=== PATIENT | male | born 1955 | race American Indian/Alaskan Native ===

== ENCOUNTER 2018-04-03 14:26 | Inpatient (IN) | payer SELFPAY ==
[2018-04-03 15:05] LABS: Basophils % (Auto) 0.3 % (0.0-1.8); Eosinophils # (Auto) 0.3 K/mm3 (0.0-0.4); Eosinophils % (Auto) 2.9 % (0.0-4.3); Hematocrit 32.7 % (35.5-45.6); Hemoglobin 10.8 gm/dl (11.8-15.2); Lymphocytes # (Auto) 2.1 K/mm3 (1.2-5.4); Lymphocytes % (Auto) 20.4 % (13.4-35.0); Mean Corpuscular HGB Conc 33 % (32-34); Mean Corpuscular Hemoglobin 29 pg (28-32); Mean Corpuscular Volume 87 fl (84-94); Monocytes # (Auto) 0.6 K/mm3 (0.0-0.8); Monocytes % (Auto) 5.9 % (0.0-7.3); Platelet Count 429 K/mm3 (140-440); Red Blood Count 3.75 M/mm3 (3.65-5.03)
[2018-04-03 15:07] LABS: Red Cell Distribution Width 20.2 % (13.2-15.2)
[2018-04-03 15:22] LABS: BUN/Creatinine Ratio 15; Blood Urea Nitrogen 15 mg/dL (9-20); Calcium 9.4 mg/dL (8.4-10.2); Hemolysis Index 0
--- NOTE | 2018-04-03 16:29 | Emergency Department Report ---
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 He also complained of swelling around the AICD implantation site. MD Complaint: chest pain -: Sudden, Last night Onset: during rest Pain Location: left chest Pain Radiation: none Severity: mild Severity scale (0 -10): 2 Quality: sharp Consistency: constant Improves With: nothing Worsens With: nothing re: denies: nausea, vomting Other Symptoms: denies: cough, fever, syncope Treatments Prior to Arrival: none Aspirin use within the Past 7 Days: (0) No - Related Data On Oral Contraceptives: No Previous Rx's Medication Instructions Recorded Last Taken Type Aspirin [Aspirin BABY CHEW TAB] 81 mg PO DAILY #30 tab.chew 03/31/18 Unknown Rx AtorvaSTATin [Lipitor] 80 mg PO QHS #30 tablet 03/31/18 Unknown Rx Carvedilol [Coreg] 3.125 mg PO BID #60 tablet 03/31/18 Unknown Rx Lisinopril [Zestril TAB] 2.5 mg PO QDAY #30 tablet 03/31/18 Unknown Rx Warfarin [Coumadin] 7.5 mg PO QDAY #30 tablet 03/31/18 Unknown Rx Allergies Allergy/AdvReac Type Severity Reaction Status Date / Time No Known Allergies Allergy Verified 04/03/18 15:59 Heart Score - HEART Score History: Moderately suspicious EKG: Non-specific Age: 45-65 Risk factors: 1-2 risk factors Troponin: < normal limit HEART Score: 4 - Critical Actions Critical Actions: 4-6 pts:12-16.6% risk of adverse cardiac event. 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 denies: dyspnea on exertion, orthopnea Endocrine: no symptoms reported Gastrointestinal: denies: abdominal pain, nausea, vomiting, diarrhea Genitourinary: denies: urgency, dysuria Musculoskeletal: denies: back pain, joint swelling Skin: denies: rash, lesions Neurological: denies: headache, weakness, numbness, paresthesias Psychiatric: denies: anxiety, depression Hematological/Lymphatic: denies: easy bleeding, easy bruising ED Past Medical Hx - Past Medical History Hx Hypertension: Yes Hx Heart Attack/AMI: Yes (02/2018) Hx Congestive Heart Failure: No Hx Diabetes: Yes Hx Deep Vein Thrombosis: No Hx Pulmonary Embolism: No Hx Liver Disease: No Hx Renal Disease: No Hx Arthritis: No Hx Headaches / Migraines: No Hx Seizures: No Hx Kidney Stones: No Hx Asthma: No Hx COPD: No Hx Tuberculosis: No Hx Dementia: No Hx HIV: No Additional medical history: hyperlipidemia - Surgical History Hx Coronary Stent: No Hx Open Heart Surgery: No Hx Pacemaker: No Hx Internal Defibrillator: No Hx Cholecystectomy: No Hx Appendectomy: No Hx Breast Surgery: No Additional Surgical History: Herniorrhaphy - Social History Smoking Status: Former Smoker Substance Use Type: None - Medications Home Medications: Home Medications Medication Instructions Recorded Confirmed Last Taken Type Aspirin [Aspirin BABY CHEW TAB] 81 mg PO DAILY #30 tab.chew 03/31/18 04/03/18 Unknown Rx AtorvaSTATin [Lipitor] 80 mg PO QHS #30 tablet 03/31/18 04/03/18 Unknown Rx Carvedilol [Coreg] 3.125 mg PO BID #60 tablet 03/31/18 04/03/18 Unknown Rx Lisinopril [Zestril TAB] 2.5 mg PO QDAY #30 tablet 03/31/18 04/03/18 Unknown Rx Warfarin [Coumadin] 7.5 mg PO QDAY #30 tablet 03/31/18 04/03/18 Unknown Rx ED Physical Exam - General Limitations: No Limitations General appearance: alert, in no apparent distress - Head Head exam: Present: atraumatic, normocephalic, normal inspection - Eye Eye exam: Present: normal appearance, PERRL, EOMI Pupils: Present: normal accommodation - ENT ENT exam: Present: normal exam, normal orophraynx, mucous membranes moist - Neck Neck exam: Present: normal inspection, full ROM. Absent: tenderness - Respiratory Respiratory exam: Present: normal lung sounds bilaterally. Absent: respiratory distress, wheezes, rales, rhonchi, stridor - Cardiovascular Cardiovascular Exam: Present: regular rate, normal rhythm, normal heart sounds - GI/Abdominal GI/Abdominal exam: Present: soft, normal bowel sounds. Absent: distended, tenderness, guarding, rebound, rigid - Extremities Exam Extremities exam: Present: normal inspection, full ROM, normal capillary refill. Absent: tenderness - Back Exam Back exam: Present: normal inspection, full ROM. Absent: tenderness - Neurological Exam Neurological exam: Present: alert, oriented X3, CN II-XII intact - Psychiatric Psychiatric exam: Present: normal affect, normal mood - Skin Skin exam: Present: warm, dry, intact, normal color. Absent: rash ED Course Vital Signs 04/03/18 04/03/18 14:36 20:01 Temperature 98.2 F Pulse Rate 103 H 67 Respiratory 20 16 Rate Blood Pressure 96/58 Blood Pressure 105/80 [Left] O2 Sat by Pulse 99 96 Oximetry - Reevaluation(s) Reevaluation #1: 04/04/18 02:52 Patient's AICD was interogated by the [employer] patient account representative in the ED. He reported back to me that his findings showed a normal working AICD. There is no evidence that the patient was shocked according to the patient account representative who did the interogation. - Consultations Consultation #1: 04/03/18 17:[address] London who is on-call for Dr. Perez. He recommended admitting the patient to the hospitalist and entire event and a AICD. CLARITZA score - Claritza Score Age > 65: (0) No Aspirin use within the Past 7 Days: (0) No 3 or more CAD Risk Factors: (1) Yes 2 or more Angina events in past 24 hrs: (1) Yes Known CAD with more than 50% Stenosis: (1) Yes Elevated Cardiac Markers: (0) No ST Deviation Greater than 0.5mm: (0) No CLARITZA Score: 3 ED Medical Decision Making - Lab Data Result diagrams: 04/03/18 14:46 04/03/18 14:46 Lab Results 04/03/18 04/03/18 04/03/18 Range/Units 14:46 14:46 14:46 WBC 10.5 (4.5-11.0) K/mm3 RBC 3.75 (3.65-5.03) M/mm3 Hgb 10.8 L (11.8-15.2) gm/dl Hct 32.7 L (35.5-45.6) % MCV 87 (84-94) fl MCH 29 (28-32) pg MCHC 33 (32-34) % RDW 20.2 H (13.2-15.2) % Plt Count 429 (140-440) K/mm3 Lymph % (Auto) 20.4 (13.4-35.0) % [place] % (Auto) 5.9 (0.0-7.3) % Eos % (Auto) 2.9 (0.0-4.3) % Baso % (Auto) 0.3 (0.0-1.8) % Lymph # 2.1 (1.2-5.4) K/mm3 [place] # 0.6 (0.0-0.8) K/mm3 Eos # 0.3 (0.0-0.4) K/mm3 Baso # 0.0 (0.0-0.1) K/mm3 Seg Neutrophils % 70.5 H (40.0-70.0) % Seg Neutrophils # 7.4 (1.8-7.7) K/mm3 PT (12.2-14.9) Sec. INR (0.87-1.13) APTT (24.2-36.6) Sec. Sodium 135 L (137-145) mmol/L Potassium 3.6 (3.6-5.0) mmol/L Chloride 97.5 L (98-107) mmol/L Carbon Dioxide 25 (22-30) mmol/L Anion Gap 16 mmol/L BUN 15 (9-20) mg/dL Creatinine 1.0 (0.8-1.5) mg/dL Estimated GFR > 60 ml/min BUN/Creatinine Ratio 15 % Glucose 173 H (75-100) mg/dL Calcium 9.4 (8.4-10.2) mg/dL Troponin T < 0.010 (0.00-0.029) ng/mL NT-Pro-B Natriuret Pep 740.8 (0-900) pg/mL 04/03/18 04/03/18 Range/Units 16:45 17:17 WBC (4.5-11.0) K/mm3 RBC (3.65-5.03) M/mm3 Hgb (11.8-15.2) gm/dl Hct (35.5-45.6) % MCV (84-94) fl MCH (28-32) pg MCHC (32-34) % RDW (13.2-15.2) % Plt Count (140-440) K/mm3 Lymph % (Auto) (13.4-35.0) % [place] % (Auto) (0.0-7.3) % Eos % (Auto) (0.0-4.3) % Baso % (Auto) (0.0-1.8) % Lymph # (1.2-5.4) K/mm3 [place] # (0.0-0.8) K/mm3 Eos # (0.0-0.4) K/mm3 Baso # (0.0-0.1) K/mm3 Seg Neutrophils % (40.0-70.0) % Seg Neutrophils # (1.8-7.7) K/mm3 PT 35.7 H (12.2-14.9) Sec. INR 3.28 H (0.87-1.13) APTT 74.9 H* (24.2-36.6) Sec. Sodium (137-145) mmol/L Potassium (3.6-5.0) mmol/L Chloride (98-107) mmol/L Carbon Dioxide (22-30) mmol/L Anion Gap mmol/L BUN (9-20) mg/dL Creatinine (0.8-1.5) mg/dL Estimated GFR ml/min BUN/Creatinine Ratio % Glucose (75-100) mg/dL Calcium (8.4-10.2) mg/dL Troponin T < 0.010 (0.00-0.029) ng/mL NT-Pro-B Natriuret Pep (0-900) pg/mL - EKG Data -: EKG Interpreted by Vt EKG shows normal: sinus rhythm Rate: normal (94) - EKG Data When compared to previous EKG there are: changes noted Interpretation: nonspecific ST-T wave gabi 04/03/18 18:09 PVC's, LAE, No STEMI. - Radiology Data Radiology results: report reviewed, image reviewed Chest x-ray was within normal limits. CT scan of the status does not show pulmonary embolism. Please refer to the radiology report for further details. - Medical Decision Making Patient will be admitted to the hospital because his AICD has been discharging since 3 AM last night. I consulted the manufacturing industrial engineer space control supervisor for Dr. Perez ( Dr. London). He recommended admitting the patient to the hospitalist for further evaluation and management. Also patient AICD will be interrogated by Mr. Fly De La Fuente from [employer] today. Patient also has coronary artery disease. Critical care attestation.: If time is entered above; I have spent that time in minutes in the direct care of this critically ill patient, excluding procedure time. ED Disposition Clinical Impression: AICD discharge, Elevated INR (international normalized ratio) Coronary artery disease Qualifiers: Coronary Disease-Associated Artery/Lesion type: [place] artery [place] vs. transplanted heart: unspecified whether [place] or transplanted heart Associated angina: angina presence unspecified Qualified Code(s): I25.10 - Atherosclerotic heart disease of [place] coronary artery without angina pectoris Chest pain Qualifiers: Chest pain type: unspecified Qualified Code(s): R07.9 - Chest pain, unspecified Disposition: 09 OP ADMIT IP TO THIS HOSP Is pt being admited?: Yes Does the pt Need Aspirin: No Condition: Stable Time of Disposition: 17:30
[2018-04-03 17:42] LABS: INR 3.28 (0.87-1.13)
--- NOTE | 2018-04-03 17:47 | XRay Report ---
FINAL REPORT EXAM: XR CHEST 1V AP HISTORY: chest pain TECHNIQUE: Frontal portable examination of the chest PRIORS: 03/21/2018 FINDINGS: An electronic cardiac device remains in place and again obscures a portion of the left chest, limiting the examination. Cable entry is via the left subclavian vein. Atherosclerotic change in the thoracic aorta. Degenerative change in the thoracic spine. There is no visible pulmonary consolidation, pleural effusion, or pneumothorax. Cardiac silhouette size is slightly enlarged without vascular congestion. IMPRESSION: No acute pulmonary disease in the visualized chest Slight cardiomegaly
[2018-04-03 17:54] LABS: Partial Thromboplastin Time 74.9 Sec. (24.2-36.6)
--- NOTE | 2018-04-03 19:21 | History and Physical Report ---
History of Present Illness Date of examination: 04/03/18 Date of admission: 04/03/2018 Chief complaint: Chief complaint: Pacemaker discharge Chest pain left side since a.m. History of present illness: History of present illness: 66-year-old black male with history of hypertension hyperlipidemia coronary artery disease comes in for his pacemaker discharging frequently since a.m. and also left-sided chest pain. No diaphoresis no palpitations no shortness of breath. Patient had his pacemaker inserted recently by Dr Angelita Perez. He follows with [facility] specialists. Chest pain is about 5 on a scale of 1-10. No exacerbating or relieving factors. No recent travel. No fever or chills. Past Medical History Hypertension: Yes Heart Attack/AMI: Yes (02/2018) Congestive Heart Failure: No Diabetes: Yes hyperlipidemia Surgical History Pacemaker insertion Herniorrhaphy Social History Smoking Status: Former Smoker Substance Use Type: None Medications Home Medications: Home Medications Medication Instructions Recorded Confirmed Last Taken Type Aspirin [Aspirin BABY CHEW TAB] 81 mg PO DAILY #30 tab.chew 03/31/18 04/03/18 Unknown Rx AtorvaSTATin [Lipitor] 80 mg PO QHS #30 tablet 03/31/18 04/03/18 Unknown Rx Carvedilol [Coreg] 3.125 mg PO BID #60 tablet 03/31/18 04/03/18 Unknown Rx Lisinopril [Zestril TAB] 2.5 mg PO QDAY #30 tablet 03/31/18 04/03/18 Unknown Rx Warfarin [Coumadin] 7.5 mg PO QDAY #30 tablet 03/31/18 04/03/18 Unknown Rx Review of systems Stated complaint: 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 SWOLLEN/PACE MAKER Other details as noted in HPI 14 point review of systems done and negative otherwise Medications and Allergies Allergies Allergy/AdvReac Type Severity Reaction Status Date / Time No Known Allergies Allergy Verified 04/03/18 15:59 Home Medications Medication Instructions Recorded Confirmed Last Taken Type Aspirin [Aspirin BABY CHEW TAB] 81 mg PO DAILY #30 tab.chew 03/31/18 04/03/18 Unknown Rx AtorvaSTATin [Lipitor] 80 mg PO QHS #30 tablet 03/31/18 04/03/18 Unknown Rx Carvedilol [Coreg] 3.125 mg PO BID #60 tablet 03/31/18 04/03/18 Unknown Rx Lisinopril [Zestril TAB] 2.5 mg PO QDAY #30 tablet 03/31/18 04/03/18 Unknown Rx Warfarin [Coumadin] 7.5 mg PO QDAY #30 tablet 03/31/18 04/03/18 Unknown Rx Exam - Constitutional Vitals: Temp Pulse Resp BP Pulse Ox 98.2 F 103 H 20 96/58 99 04/03/18 14:36 04/03/18 14:36 04/03/18 14:36 04/03/18 14:36 04/03/18 14:36 General appearance: Present: no acute distress, well-nourished - EENT Eyes: Present: PERRL ENT: hearing intact, clear oral mucosa - Neck Neck: Present: supple, normal ROM - Respiratory Respiratory effort: normal Respiratory: bilateral: CTA - Cardiovascular Heart rate: 94 (multiple ectopics) Rhythm: regular Heart Sounds: Present: S1 & S2. Absent: rub, click Details: Left infraclavicular region swollen where the pacemaker was inserted - Extremities Extremities: no ischemia, pulses intact, pulses symmetrical, No edema Peripheral Pulses: within normal limits - Abdominal General gastrointestinal: Present: soft, non-tender, non-distended, normal bowel sounds Male genitourinary: Present: normal - Rectal Rectal Exam: deferred - Integumentary Integumentary: Present: clear, warm, dry - Musculoskeletal Musculoskeletal: gait normal, strength equal bilaterally - Psychiatric Psychiatric: appropriate mood/affect, intact judgment & insight - Neurologic Neurologic: CNII-XII intact, moves all extremities - Allied Health Allied health notes reviewed: nursing, case management Results - Labs CBC & Chem 7: 04/03/18 14:46 04/03/18 14:46 Labs: Laboratory Last Values WBC 10.5 K/mm3 (4.5-11.0) 04/03/18 14:46 RBC 3.75 M/mm3 (3.65-5.03) 04/03/18 14:46 Hgb 10.8 gm/dl (11.8-15.2) L 04/03/18 14:46 Hct 32.7 % (35.5-45.6) L 04/03/18 14:46 MCV 87 fl (84-94) 04/03/18 14:46 MCH 29 pg (28-32) 04/03/18 14:46 MCHC 33 % (32-34) 04/03/18 14:46 RDW 20.2 % (13.2-15.2) H 04/03/18 14:46 Plt Count 429 K/mm3 (140-440) 04/03/18 14:46 Lymph % (Auto) 20.4 % (13.4-35.0) 04/03/18 14:46 [place] % (Auto) 5.9 % (0.0-7.3) 04/03/18 14:46 Eos % (Auto) 2.9 % (0.0-4.3) 04/03/18 14:46 Baso % (Auto) 0.3 % (0.0-1.8) 04/03/18 14:46 Lymph # 2.1 K/mm3 (1.2-5.4) 04/03/18 14:46 [place] # 0.6 K/mm3 (0.0-0.8) 04/03/18 14:46 Eos # 0.3 K/mm3 (0.0-0.4) 04/03/18 14:46 Baso # 0.0 K/mm3 (0.0-0.1) 04/03/18 14:46 Seg Neutrophils % 70.5 % (40.0-70.0) H 04/03/18 14:46 Seg Neutrophils # 7.4 K/mm3 (1.8-7.7) 04/03/18 14:46 PT 35.7 Sec. (12.2-14.9) H 04/03/18 17:17 INR 3.28 (0.87-1.13) H 04/03/18 17:17 APTT 74.9 Sec. (24.2-36.6) H* 04/03/18 17:17 Sodium 135 mmol/L (137-145) L 04/03/18 14:46 Potassium 3.6 mmol/L (3.6-5.0) 04/03/18 14:46 Chloride 97.5 mmol/L (98-107) L 04/03/18 14:46 Carbon Dioxide 25 mmol/L (22-30) 04/03/18 14:46 Anion Gap 16 mmol/L 04/03/18 14:46 BUN 15 mg/dL (9-20) 04/03/18 14:46 Creatinine 1.0 mg/dL (0.8-1.5) 04/03/18 14:46 Estimated GFR > 60 ml/min 04/03/18 14:46 BUN/Creatinine Ratio 15 % 04/03/18 14:46 Glucose 173 mg/dL (75-100) H 04/03/18 14:46 Calcium 9.4 mg/dL (8.4-10.2) 04/03/18 14:46 Troponin T < 0.010 ng/mL (0.00-0.029) 04/03/18 16:45 NT-Pro-B Natriuret Pep 740.8 pg/mL (0-900) 04/03/18 14:46 Short CBC 04/03/18 Range/Units 14:46 WBC 10.5 (4.5-11.0) K/mm3 Hgb 10.8 L (11.8-15.2) gm/dl Hct 32.7 L (35.5-45.6) % Plt Count 429 (140-440) K/mm3 BMP 04/03/18 14:46 Sodium 135 L Potassium 3.6 Chloride 97.5 L Carbon Dioxide 25 BUN 15 Creatinine 1.0 Glucose 173 H Calcium 9.4 Cardiac Enzymes 04/03/18 04/03/18 Range/Units 14:46 16:45 Troponin T < 0.010 < 0.010 (0.00-0.029) ng/mL - Imaging and Cardiology EKG: report reviewed (normal sinus rhythm heart rate of 94/m multiple premature ventricular complexes left atrial enlargement probable anterior infarct EKG interpreted by me) Imaging and Cardiology: Chest x-ray FINDINGS: An electronic cardiac device remains in place and again obscures a portion of the left chest, limiting the examination. Cable entry is via the left subclavian vein. Atherosclerotic change in the thoracic aorta. Degenerative change in the thoracic spine. There is no visible pulmonary consolidation, pleural effusion, or pneumothorax. Cardiac silhouette size is slightly enlarged without vascular congestion. IMPRESSION: No acute pulmonary disease in the visualized chest Slight cardiomegaly Assessment and Plan Advance Directives: Yes (full code) VTE prophylaxis?: Chemical Plan of care discussed with patient/family: Yes - Patient Problems (1) AICD discharge Current Visit: Yes Status: Acute Plan to address problem: Pacemaker to be interrogated Device company informed (2) Chest pain Current Visit: Yes Status: Acute Qualifiers: Chest pain type: unspecified Qualified Code(s): R07.9 - Chest pain, unspecified Plan to address problem: Chest pain workup including Lexiscan Serial cardiac enzymes (3) Coronary artery disease Current Visit: Yes Status: Chronic Qualifiers: Coronary Disease-Associated Artery/Lesion type: [place] artery [place] vs. transplanted heart: unspecified whether [place] or transplanted heart Associated angina: angina presence unspecified Qualified Code(s): I25.10 - Atherosclerotic heart disease of [place] coronary artery without angina pectoris (4) Anticoagulated on Coumadin Current Visit: No Status: Chronic Plan to address problem: INR is high Pharmacy to adjust dosage (5) Automatic implantable cardioverter-defibrillator in situ Current Visit: No Status: Chronic Plan to address problem: Pacemaker discharging Unclear whether AICD is there (6) Ischemic cardiomyopathy Current Visit: No Status: Chronic (7) LV (left ventricular) mural thrombus Current Visit: No Status: Chronic Plan to address problem: On Coumadin (8) Hypertension Current Visit: Yes Status: Chronic Qualifiers: Hypertension type: essential hypertension Qualified Code(s): I10 - Essential (primary) hypertension Plan to address problem: Continue antihypertensives (9) Hyperlipidemia Current Visit: Yes Status: Chronic Qualifiers: Hyperlipidemia type: mixed hyperlipidemia Qualified Code(s): E78.2 - Mixed hyperlipidemia Plan to address problem: On statins (10) Type 2 diabetes mellitus Current Visit: Yes Status: Chronic Qualifiers: 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
--- NOTE | 2018-04-03 20:42 | Cat Scan Report ---
FINAL REPORT PROCEDURE: CT ANGIO CHEST TECHNIQUE: Computerized tomographic angiography of the chest was performed after the IV injection of iodinated nonionic contrast including image processing. The image data was postprocessed using 2-dimensional multiplanar reformatted (MPR) and 3-dimensional (MIP and/or volume rendered) techniques. HISTORY: Chest pain COMPARISON: 03/24/2018 FINDINGS: Heart and pericardium: Previously described soft tissue density at the apex of the left ventricle is again visualized. Small amount of pericardial fluid is present. Prominent heart size. Thoracic aorta: Normal. Pulmonary vasculature: Limited evaluation due to streak artifact. Otherwise no filling defects are seen to suggest presence of pulmonary emboli. Lymph nodes: No enlarged thoracic lymph nodes. Lungs: There is seen a tubular opacity at the left lateral lung base, which appears decreased in size compared to the prior study. Pleural space: No effusion, thickening, or pneumothorax. Musculoskeletal structures: No significant abnormality. Upper abdominal structures: No significant abnormality. IMPRESSION: There is limited evaluation of the pulmonary arteries due to streak artifact. No definitive pulmonary emboli are seen Tubular opacity at the lateral left lung base appears decreased in size compared to the prior study. CT follow-up could be obtained as clinically indicated
[2018-04-03] MEDS ORDERED: AMBIEN PO PRN (21:27)
[2018-04-03] MEDS ORDERED: ZOFRAN IV PRN (21:27)
[2018-04-03] MEDS ORDERED: SODIUM CHLORIDE FLUSH SYRINGE 10 ML IV PRN (21:27)
[2018-04-03] MEDS ORDERED: TYLENOL PO PRN (21:27)
[2018-04-03] MEDS ORDERED: COUMADIN PO SCH (22:00)
[2018-04-03] MEDS ORDERED: COUMADIN NO DOSE TODAY PO ONE (22:00)
[2018-04-03] MEDS: PEPCID PO SCH (22:14)
[2018-04-03] MEDS: MORPHINE IV PRN (22:15)
[2018-04-03] MEDS: COREG PO SCH (22:15)
[2018-04-03] MEDS: HumaLOG SUB-Q SCH (22:16)
[2018-04-03] MEDS: SODIUM CHLORIDE FLUSH SYRINGE 10 ML IV SCH (22:16)
[2018-04-03] MEDS: ZESTRIL PO SCH (22:17)
[2018-04-04 05:56] LABS: Basophils % (Auto) 0.3 % (0.0-1.8); Eosinophils # (Auto) 0.3 K/mm3 (0.0-0.4); Eosinophils % (Auto) 3.4 % (0.0-4.3); Hemoglobin 10.2 gm/dl (11.8-15.2); Lymphocytes # (Auto) 2.1 K/mm3 (1.2-5.4); Lymphocytes % (Auto) 24.1 % (13.4-35.0); Mean Corpuscular HGB Conc 34 % (32-34); Mean Corpuscular Hemoglobin 29 pg (28-32); Mean Corpuscular Volume 86 fl (84-94); Monocytes # (Auto) 0.8 K/mm3 (0.0-0.8); Platelet Count 385 K/mm3 (140-440)
[2018-04-04 05:57] LABS: Red Cell Distribution Width 20.1 % (13.2-15.2)
[2018-04-04] MEDS: MORPHINE IV PRN ×2 (06:00→16:12)
[2018-04-04 06:15] LABS: Alanine Aminotransferase 25 units/L (7-56); Albumin 3.4 g/dL (3.9-5); BUN/Creatinine Ratio 16; Blood Urea Nitrogen 11 mg/dL (9-20); Hemolysis Index 1
[2018-04-04] MEDS ORDERED: MORPHINE IV ONE (06:27)
[2018-04-04] MEDS: HumaLOG SUB-Q SCH ×4 (07:30→21:58)
[2018-04-04 08:55] LABS: INR 2.33 (0.87-1.13)
[2018-04-04] MEDS: COREG PO SCH ×2 (10:28→21:54)
[2018-04-04] MEDS: PEPCID PO SCH ×2 (10:28→21:54)
[2018-04-04] MEDS: BABY ASPIRIN PO SCH ×2 (10:28→19:20)
[2018-04-04] MEDS: ZESTRIL PO SCH (10:29)
[2018-04-04] MEDS: SODIUM CHLORIDE FLUSH SYRINGE 10 ML IV SCH ×2 (10:30→21:58)
--- NOTE | 2018-04-04 11:01 | Consultation ---
History of Present Illness Consult date: 04/04/18 Requesting physician: SHALOM NUNO Consult reason: other (AICD pain and swelling) History of present illness: The pt is a 62 YO male with a past medical history significant for CAD s/p late presentation STEMI (01/21/2018 at [facility]) complicated by cardiogenic shock requiring IABP, ICMP, AICD in situ (implanted 03/21/2018), LV thrombus, anticoagulated with coumadin, ETOH abuse, tobacco use. He was recently seen by our practice on prior hospitalization. He presented with complaints AICD pain and swelling. He states that since the day of discharge (03/31/2018), that he has noted increased swelling and pain at his AICD implantation site. He denies any device discharges, fever, chills, chest pain, palpitations, n/v, diaphoresis , dizziness or syncope. He did not present to our office for his post-procedure incision check (scheduled for 04/02 @ 10:30AM). 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 Due to chest symptoms starting > 48 hours prior to presentation, patient was chest pain free upon entering labor delivery rn , q-waves anterior and inferior, and bedside TTE prior to case with thinned out apex with fixed LV thrombus, this is likely late presentation of LAD infarction which occurred > 48 hours ago with superimposed chronic ischemic heart disease. For these reasons the decision was made to defer intervention and manage conservatively. Echo done 03/14/2018 showed EF 30-35%, mild LVH, mid anterior, apical septal, apical anterior and apical lateral wall segments dyskinetic, well organized mural apical thrombus, impaired relaxation. Past History Past Medical History: acute MA, CAD, heart failure, other (LV thrombus) Past Surgical History: Other (AICD in situ) Social history: smoking, alcohol abuse Medications and Allergies Allergies Allergy/AdvReac Type Severity Reaction Status Date / Time No Known Allergies Allergy Verified 04/03/18 15:59 Home Medications Medication Instructions Recorded Confirmed Last Taken Type Aspirin [Aspirin BABY CHEW TAB] 81 mg PO DAILY #30 tab.chew 03/31/18 04/03/18 Unknown Rx AtorvaSTATin [Lipitor] 80 mg PO QHS #30 tablet 03/31/18 04/03/18 Unknown Rx Carvedilol [Coreg] 3.125 mg PO BID #60 tablet 03/31/18 04/03/18 Unknown Rx Lisinopril [Zestril TAB] 2.5 mg PO QDAY #30 tablet 03/31/18 04/03/18 Unknown Rx Warfarin [Coumadin] 7.5 mg PO QDAY #30 tablet 03/31/18 04/03/18 Unknown Rx Active Meds: Active Medications Acetaminophen (Tylenol) 650 mg PO Q4H PRN PRN Reason: Pain MILD(1-3)/Fever >100.5/BONILLA Aspirin (Baby Aspirin) 81 mg PO DAILY [facility] Last Admin: 04/04/18 10:28 Dose: 81 mg Atorvastatin Calcium (Lipitor) 80 mg PO QHS [facility] Last Admin: 04/03/18 22:13 Dose: 80 mg Carvedilol (Coreg) 3.125 mg PO BID [facility] Last Admin: 04/04/18 10:28 Dose: 3.125 mg Famotidine (Pepcid) 20 mg PO BID [facility] Last Admin: 04/04/18 10:28 Dose: 20 mg Hydromorphone HCl (Dilaudid) 0.5 mg IV Q3H PRN PRN Reason: Pain , Severe (7-10) Insulin Human Lispro (Humalog) 0 unit SUB-Q [facility]; Protocol Last Admin: 04/04/18 07:30 Dose: Not Given Lisinopril (Zestril) 2.5 mg PO QDAY [facility] Last Admin: 04/04/18 10:29 Dose: 2.5 mg Morphine Sulfate (Morphine) 2 mg IV Q4H PRN PRN Reason: Pain, Moderate (4-6) Last Admin: 04/04/18 06:00 Dose: 2 mg Ondansetron HCl (Zofran) 4 mg IV Q8H PRN PRN Reason: Nausea And Vomiting Oxycodone/Acetaminophen (Percocet 5/325) 1 tab PO Q6H PRN PRN Reason: Pain, Moderate (4-6) Sodium Chloride (Sodium Chloride Flush Syringe 10 Ml) 10 ml IV BID [facility] Last Admin: 04/04/18 10:30 Dose: 10 ml Sodium Chloride (Sodium Chloride Flush Syringe 10 Ml) 10 ml IV PRN PRN PRN Reason: LINE FLUSH Zolpidem Tartrate (Ambien) 5 mg PO QHS PRN PRN Reason: Insomnia Review of Systems Constitutional: no weight loss, no weight gain, no fever, no chills, no sweats Ears, nose, mouth and throat: no ear pain, no nose pain, no sinus pressure, no sinus pain Cardiovascular: no chest pain, no orthopnea, no palpitations, no rapid/ irregular heart beat, no edema, no syncope, no lightheadedness, no shortness of breath, no dyspnea on exertion, no high blood pressure, no leg edema, no decreased exercise tolerance Respiratory: no cough, no shortness of breath, no dyspnea on exertion, no congestion, no wheezing, no pain Gastrointestinal: no abdominal pain, no nausea, no vomiting, no diarrhea, no constipation, no change in bowel habits Musculoskeletal: no neck stiffness, no neck pain, no shooting arm pain, no arm numbness/tingling, no low back pain, no shooting leg pain Integumentary: other (AICD implantation site swelling and pain), no rash, no pruritis Neurological: no head injury, no paralysis, no weakness, no parathesias, no numbness, no tingling, no seizures, no syncope Psychiatric: no anxiety Endocrine: no cold intolerance, no heat intolerance, no polyuria Hematologic/Lymphatic: no easy bruising, no easy bleeding Allergic/Immunologic: no urticaria, no wheezing Physical Examination Vital Signs Temp Pulse Resp BP Pulse Ox 98.2 F 103 H 20 96/58 99 04/03/18 14:36 04/03/18 14:36 04/03/18 14:36 04/03/18 14:36 04/03/18 14:36 General appearance: no acute distress HEENT: Positive: PERRL, Normocephaly, Mucus Membranes Moist Neck: Positive: neck supple, trachea midline Cardiac: Positive: Reg Rate and Rhythm, S1/S2 Lungs: Positive: clear to auscultation Neuro: Positive: Grossly Intact, Cranial Nerve 2-12 Intact Abdomen: Positive: Soft. Negative: Tender Skin: Positive: Other (AICD implantation site swelling, pain and redness ). Negative: Wound Musculoskeletal: No Fluid Collection, No Pain, Normal Range of Motion Extremities: Absent: edema Results 04/04/18 05:28 04/04/18 05:28 Cardiac Enzymes 04/04/18 Range/Units 05:28 AST 18 (5-40) units/L Coagulation 04/03/18 04/04/18 Range/Units 17:17 08:13 PT 35.7 H 27.1 H (12.2-14.9) Sec. INR 3.28 H 2.33 H (0.87-1.13) APTT 74.9 H* (24.2-36.6) Sec. CBC 04/03/18 04/04/18 Range/Units 14:46 05:28 WBC 10.5 8.7 (4.5-11.0) K/mm3 RBC 3.75 3.50 L (3.65-5.03) M/mm3 Hgb 10.8 L 10.2 L (11.8-15.2) gm/dl Hct 32.7 L 30.0 L (35.5-45.6) % Plt Count 429 385 (140-440) K/mm3 Lymph # 2.1 2.1 (1.2-5.4) K/mm3 [place] # 0.6 0.8 (0.0-0.8) K/mm3 Eos # 0.3 0.3 (0.0-0.4) K/mm3 Baso # 0.0 0.0 (0.0-0.1) K/mm3 Comprehensive Metabolic Panel 04/03/18 04/04/18 Range/Units 14:46 05:28 Sodium 135 L 135 L (137-145) mmol/L Potassium 3.6 3.7 (3.6-5.0) mmol/L Chloride 97.5 L 99.4 (98-107) mmol/L Carbon Dioxide 25 24 (22-30) mmol/L BUN 15 11 (9-20) mg/dL Creatinine 1.0 0.7 L (0.8-1.5) mg/dL Glucose 173 H 128 H (75-100) mg/dL Calcium 9.4 9.0 (8.4-10.2) mg/dL AST 18 (5-40) units/L ALT 25 (7-56) units/L Alkaline Phosphatase 134 H (35-129) units/L Total Protein 7.2 (6.3-8.2) g/dL Albumin 3.4 L (3.9-5) g/dL - Imaging and Cardiology Echo: report reviewed (03/14/2018: EF 30-35%, mild LVH, mid anterior, apical septal, apical anterior and apical lateral wall segments dyskinetic, well organized mural apical thrombus, impaired relaxation) Cardiac cath: report reviewed (01/21/2018 for STEMI showed 90% mid LAD stenosis with CLARITZA II flow distally, 100% 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 Due to chest symptoms starting > 48 hours prior to presentation, patient was chest pain free upon entering labor delivery rn, q-waves anterior and inferior, and bedside TTE prior to case with thinned out apex with fixed LV thrombus, this is likely late presentation of LAD infarction which occurred > 48 hours ago with superimposed chronic ischemic heart disease. For these reasons the decision was made to defer intervention and manage conservatively. ) EKG: report reviewed, image reviewed EKG interpretations - Telemetry EKG Rhythm: Sinus Rhythm - EKG Sinus rhythms and dysrhythmias: sinus rhythm Myocardial infarction: inferior [place] (old age inde Assessment and Plan Currently stable cardiac status. D/w Dr. Perez. Hold coumadin and monitor INR and CBC. Obtain blood cultures and wound culture, initiate empiric IV antibiotics, consult wound care and consult infectious disease. Apply pressure dressing to AICD site. Assessment and plan reviewed with pt at bedside. The patient has been seen in conjunction with Dr. Vidal who agrees with the assessment and plan of care. - Patient Problems (1) Implantable cardioverter-defibrillator mechanical complication Current Visit: Yes Status: Acute (2) Elevated INR (international normalized ratio) Current Visit: Yes Status: Acute (3) Anticoagulated on Coumadin Current Visit: Yes Status: Chronic (4) LV (left ventricular) mural thrombus Current Visit: Yes Status: Chronic (5) Ischemic cardiomyopathy Current Visit: Yes Status: Chronic (6) Coronary artery disease Current Visit: Yes Status: Chronic Qualifiers: Coronary Disease-Associated Artery/Lesion type: [place] artery [place] vs. transplanted heart: unspecified whether [place] or transplanted heart Associated angina: angina presence unspecified Qualified Code(s): I25.10 - Atherosclerotic heart disease of [place] coronary artery without angina pectoris (7) ETOH abuse Current Visit: Yes Status: Chronic (8) Tobacco use Current Visit: Yes Status: Chronic
[2018-04-04] MEDS ORDERED: ceFAZolin 2 GM in NACL 0.9% 100 ML IV SCH (14:00)
[2018-04-04] MEDS ORDERED: VANCOMYCIN VIAL IV ONE (15:43)
[2018-04-04] MEDS ORDERED: VANCOMYCIN PHARMACY TO DOSE IV SCH (16:00)
--- NOTE | 2018-04-04 16:07 | Consultation ---
History of Present Illness - Reason for Consult Consult date: 04/04/18 AICD site hematoma v/s infection Requesting physician: PEG LAI - History of Present Illness The patient is a 62-year-old male with hypertension, hyperlipidemia, coronary artery disease with a recent myocardial infarction about one month ago requiring a prolonged hospital stay. He had an AICD inserted [address] Perez and reports ongoing pain at the site since then. He presented to the hospital emergency room yesterday with complaints of severe stabbing pain at the AICD site and thought that he had been getting AICD shocks. His device was evaluated and showed no device discharges. Given significant swelling of his AICD site and concern for infection, infectious diseases was consulted. Patient denies any fever or chills. He denies any wound dehiscence or drainage. Denies any nausea, vomiting or diarrhea. Denies any shortness of breath or cough. Continues to complain of severe stabbing left upper chest pain at the site of his AICD. Of note, during his recent hospitalization from 03/13/2018 to 03/31/2018, the patient did complain of pain at his AICD area for which he was empirically started on Bactrim but stopped later as a wound culture was negative. Review of Systems: General: no fevers,chills or rigors HEENT: no new visual disturbance Respiratory: No cough, sputum, hemoptysis or shortness of breath Cardiovascular: No chest pain except at AICD site, no drainage, no syncope Gastrointestinal: No nausea, vomiting or diarrhea Genitourinary: No dysuria or hematuria Musculoskeletal: No new or worsening neck pain or back pain Neurologic: No headaches, seizures Hematologic: No easy bruising or bleeding Endocrine: No night sweats or acute weight loss Skin: negative for rash, jaundice Psychiatric: No suicidal or homicidal ideation Past History Past Medical History: acute [place], CAD, heart failure, other (LV thrombus) Past Surgical History: Other (AICD in situ) Social history: smoking, alcohol abuse Medications and Allergies Allergies Allergy/AdvReac Type Severity Reaction Status Date / Time No Known Allergies Allergy Verified 04/03/18 15:59 Home Medications Medication Instructions Recorded Confirmed Last Taken Type Aspirin [Aspirin BABY CHEW TAB] 81 mg PO DAILY #30 tab.chew 03/31/18 04/03/18 Unknown Rx AtorvaSTATin [Lipitor] 80 mg PO QHS #30 tablet 03/31/18 04/03/18 Unknown Rx Carvedilol [Coreg] 3.125 mg PO BID #60 tablet 03/31/18 04/03/18 Unknown Rx Lisinopril [Zestril TAB] 2.5 mg PO QDAY #30 tablet 03/31/18 04/03/18 Unknown Rx Warfarin [Coumadin] 7.5 mg PO QDAY #30 tablet 03/31/18 04/03/18 Unknown Rx Active Meds: Active Medications Acetaminophen (Tylenol) 650 mg PO Q4H PRN PRN Reason: Pain MILD(1-3)/Fever >100.5/BONILLA Aspirin (Baby Aspirin) 81 mg PO DAILY [facility] Last Admin: 04/04/18 10:28 Dose: 81 mg Atorvastatin Calcium (Lipitor) 80 mg PO QHS [facility] Last Admin: 04/03/18 22:13 Dose: 80 mg Carvedilol (Coreg) 3.125 mg PO BID [facility] Last Admin: 04/04/18 10:28 Dose: 3.125 mg Famotidine (Pepcid) 20 mg PO BID [facility] Last Admin: 04/04/18 10:28 Dose: 20 mg Hydromorphone HCl (Dilaudid) 0.5 mg IV Q3H PRN PRN Reason: Pain , Severe (7-10) Insulin Human Lispro (Humalog) 0 unit SUB-Q [facility]; Protocol Last Admin: 04/04/18 07:30 Dose: Not Given Lisinopril (Zestril) 2.5 mg PO QDAY [facility] Last Admin: 04/04/18 10:29 Dose: 2.5 mg Morphine Sulfate (Morphine) 2 mg IV Q4H PRN PRN Reason: Pain, Moderate (4-6) Last Admin: 04/04/18 06:00 Dose: 2 mg Ondansetron HCl (Zofran) 4 mg IV Q8H PRN PRN Reason: Nausea And Vomiting Oxycodone/Acetaminophen (Percocet 5/325) 1 tab PO Q6H PRN PRN Reason: Pain, Moderate (4-6) Sodium Chloride (Sodium Chloride Flush Syringe 10 Ml) 10 ml IV BID [facility] Last Admin: 04/04/18 10:30 Dose: 10 ml Sodium Chloride (Sodium Chloride Flush Syringe 10 Ml) 10 ml IV PRN PRN PRN Reason: LINE FLUSH Vancomycin HCl (Vancomycin Vial) 1,250 mg 15 mg/kg (1250 mg) IV ONCE ONE; Protocol Stop: 04/04/18 15:44 Zolpidem Tartrate (Ambien) 5 mg PO QHS PRN PRN Reason: Insomnia Physical Examination - Physical Exam Narrative exam: Physical Exam: Constitutional: Alert, cooperative. No acute distress Head, Ears, Nose: Normocephalic, atraumatic. External ears, nose normal Eyes: Conjunctivae/corneas clear. No icterus. No ptosis. Neck: Supple, no meningeal signs Oral: mucosa moist, no thrush Cardiovascular: S1, S2 normal. Respiratory: Good air entry, clear to auscultation bilaterally GI: Soft, non-tender; bowel sounds normal. No peritoneal signs Musculoskeletal: No pedal edema, no cyanosis. Significant swelling, tenderness at left upper chest AICD site, no drainage, purulence or obvious fluctuant swelling, there is mild warmth and erythema. Skin: No rash or abscess Hem/Lymphatic: No palpable cervical or supraclavicular nodes. No lymphangitis Psych: Mood ok. Affect normal Neurological: Awake, alert, oriented. No gross abnormality - Constitutional Vitals: Vital Signs Temp Pulse Resp BP Pulse Ox 98.6 F 95 H 18 106/61 97 04/04/18 11:28 04/04/18 11:28 04/04/18 11:28 04/04/18 11:28 04/04/18 11:28 Temperature -Last 24 Hours Temperature 98.6 F Temperature 98.2 F Temperature 98.5 F Temperature 98.2 F Results - Labs CBC & Chem 7: 04/04/18 05:28 04/04/18 05:28 Labs: Cultures: 04/04/2018 blood culture: In process Abnormal lab results 04/03/18 04/03/18 04/04/18 Range/Units 17:17 21:50 05:21 RBC (3.65-5.03) M/mm3 Hgb (11.8-15.2) gm/dl Hct (35.5-45.6) % RDW (13.2-15.2) % [place] % (Auto) (0.0-7.3) % PT 35.7 H (12.2-14.9) Sec. INR 3.28 H (0.87-1.13) APTT 74.9 H* (24.2-36.6) Sec. Sodium (137-145) mmol/L Creatinine (0.8-1.5) mg/dL Glucose (75-100) mg/dL POC Glucose 119 H (70-105) Hemoglobin A1c 7.4 H (4-6) % Alkaline Phosphatase (35-129) units/L Albumin (3.9-5) g/dL 04/04/18 04/04/18 04/04/18 Range/Units 05:28 05:28 08:13 RBC 3.50 L (3.65-5.03) M/mm3 Hgb 10.2 L (11.8-15.2) gm/dl Hct 30.0 L (35.5-45.6) % RDW 20.1 H (13.2-15.2) % [place] % (Auto) 9.0 H (0.0-7.3) % PT 27.1 H (12.2-14.9) Sec. INR 2.33 H (0.87-1.13) APTT (24.2-36.6) Sec. Sodium 135 L (137-145) mmol/L Creatinine 0.7 L (0.8-1.5) mg/dL Glucose 128 H (75-100) mg/dL POC Glucose (70-105) Hemoglobin A1c (4-6) % Alkaline Phosphatase 134 H (35-129) units/L Albumin 3.4 L (3.9-5) g/dL - Imaging and Cardiology Chest x-ray: image reviewed (showed no pneumonia. AICD in place.) CT scan - chest: report reviewed, image reviewed (showed no PE.) Assessment and Plan 62-year-old male with hypertension, hyperlipidemia, coronary artery disease with a recent myocardial infarction about one month ago requiring a prolonged hospital stay. He had an AICD inserted [address] Perez now with: 1) Significant pain and swelling at AICD site with concern for infection versus hematoma: Does have an elevated INR due to Coumadin use. He has significant pain and swelling at his AICD site, hence, infection is also a possibility although the patient has no fever or chills and no leukocytosis. It is possible that recent Bactrim use may have masked some of the signs. Recommend 2 sets of blood cultures followed by empiric IV vancomycin. And will likely need evacuation of hematoma v/s removal of the device if intraoperative findings show infection to avoid relapse. Recommendations: Blood cultures 2 IV vancomycin 15 mg per KG loading dose followed by PK consult Will likely need evacuation of hematoma. Will need removal of the device if intraoperative findings are concerning for infection to avoid relapse Plan discussed with Peg Lai from Cardiology. I am available on the phone on 04/05/2018 and plan to round on 04/06/2018. Please call with questions. MD Gavi [facility] C: [phone] O: [phone]
--- NOTE | 2018-04-04 16:29 | Progress Note ---
Assessment and Plan Assessment and plan: Chest pain and swelling at site of AICD. ID Physician consulted. Interrogation revealed proper functioning Coronary artery disease Diabetes mellitus type 2. Fingerstick q ac and hs Hypertension. Monitor BP Hyperlipidemia Full code status History Interval history: pain left chest wall at site of Hospitalist Physical - Physical exam Narrative exam: GEN: Not in acute distress, lying in bed HEENT: Normocephalic, atraumatic, Neck: supple, No JVD Lungs: Clear to auscultation bilaterally, no crackles Heart:S1 and S2 reg, no murmurs, rubs or gallop, tender, swelling left upper chest wall at site of AICD Abd:soft, tender, non distended,Normal bowel sounds Ext: No edema, no clubbing, no cyanosis Neuro: Awake, alert, oriented x 3, no focal signs - Constitutional Vitals: Temp Pulse Resp BP Pulse Ox 98.6 F 89 18 106/61 97 04/04/18 11:28 04/04/18 12:00 04/04/18 11:28 04/04/18 11:28 04/04/18 11:28 General appearance: Present: no acute distress Results - Labs CBC & Chem 7: 04/05/18 05:51 04/04/18 05:28 Labs: Laboratory Last Values WBC 8.7 K/mm3 (4.5-11.0) 04/04/18 05:28 RBC 3.50 M/mm3 (3.65-5.03) L 04/04/18 05:28 Hgb 10.2 gm/dl (11.8-15.2) L 04/04/18 05:28 Hct 30.0 % (35.5-45.6) L 04/04/18 05:28 MCV 86 fl (84-94) 04/04/18 05:28 MCH 29 pg (28-32) 04/04/18 05:28 MCHC 34 % (32-34) 04/04/18 05:28 RDW 20.1 % (13.2-15.2) H 04/04/18 05:28 Plt Count 385 K/mm3 (140-440) 04/04/18 05:28 Lymph % (Auto) 24.1 % (13.4-35.0) 04/04/18 05:28 [place] % (Auto) 9.0 % (0.0-7.3) H 04/04/18 05:28 Eos % (Auto) 3.4 % (0.0-4.3) 04/04/18 05:28 Baso % (Auto) 0.3 % (0.0-1.8) 04/04/18 05:28 Lymph # 2.1 K/mm3 (1.2-5.4) 04/04/18 05:28 [place] # 0.8 K/mm3 (0.0-0.8) 04/04/18 05:28 Eos # 0.3 K/mm3 (0.0-0.4) 04/04/18 05:28 Baso # 0.0 K/mm3 (0.0-0.1) 04/04/18 05:28 Seg Neutrophils % 63.2 % (40.0-70.0) 04/04/18 05:28 Seg Neutrophils # 5.5 K/mm3 (1.8-7.7) 04/04/18 05:28 PT 27.1 Sec. (12.2-14.9) H 04/04/18 08:13 INR 2.33 (0.87-1.13) H 04/04/18 08:13 APTT 74.9 Sec. (24.2-36.6) H* 04/03/18 17:17 Sodium 135 mmol/L (137-145) L 04/04/18 05:28 Potassium 3.7 mmol/L (3.6-5.0) 04/04/18 05:28 Chloride 99.4 mmol/L (98-107) 04/04/18 05:28 Carbon Dioxide 24 mmol/L (22-30) 04/04/18 05:28 Anion Gap 15 mmol/L 04/04/18 05:28 BUN 11 mg/dL (9-20) 04/04/18 05:28 Creatinine 0.7 mg/dL (0.8-1.5) L 04/04/18 05:28 Estimated GFR > 60 ml/min 04/04/18 05:28 BUN/Creatinine Ratio 16 % 04/04/18 05:28 Glucose 128 mg/dL (75-100) H 04/04/18 05:28 POC Glucose 119 (70-105) H 04/04/18 05:21 Hemoglobin A1c 7.4 % (4-6) H 04/03/18 21:50 Calcium 9.0 mg/dL (8.4-10.2) 04/04/18 05:28 Total Bilirubin 0.60 mg/dL (0.1-1.2) 04/04/18 05:28 AST 18 units/L (5-40) 04/04/18 05:28 ALT 25 units/L (7-56) 04/04/18 05:28 Alkaline Phosphatase 134 units/L (35-129) H 04/04/18 05:28 Troponin T < 0.010 ng/mL (0.00-0.029) 04/03/18 19:20 NT-Pro-B Natriuret Pep 740.8 pg/mL (0-900) 04/03/18 14:46 Total Protein 7.2 g/dL (6.3-8.2) 04/04/18 05:28 Albumin 3.4 g/dL (3.9-5) L 04/04/18 05:28 Albumin/Globulin Ratio 0.9 % 04/04/18 05:28
[2018-04-04] MEDS: VANCOMYCIN 1,750 MG in NACL 0.9% 500 ML 500 ML IV SCH (18:09)
[2018-04-04] MEDS: PERCOCET 5/325 PO PRN (22:26)
[2018-04-05] MEDS: VANCOMYCIN 1,750 MG in NACL 0.9% 500 ML 500 ML IV SCH ×2 (05:10→22:33)
[2018-04-05] MEDS: PERCOCET 5/325 PO PRN (05:12)
[2018-04-05 07:20] LABS: Hematocrit 26.9 % (35.5-45.6); Hemoglobin 9.4 gm/dl (11.8-15.2); Mean Corpuscular HGB Conc 35 % (32-34); Mean Corpuscular Hemoglobin 30 pg (28-32); Mean Corpuscular Volume 85 fl (84-94); Platelet Count 394 K/mm3 (140-440); Red Blood Count 3.14 M/mm3 (3.65-5.03); Red Cell Distribution Width 19.8 % (13.2-15.2)
[2018-04-05 07:21] LABS: INR 2.24 (0.87-1.13)
[2018-04-05] MEDS: PEPCID PO SCH ×2 (10:41→22:33)
[2018-04-05] MEDS: BABY ASPIRIN PO SCH (10:41)
[2018-04-05] MEDS: COREG PO SCH ×2 (10:42→22:33)
[2018-04-05] MEDS: DILAUDID IV PRN ×2 (10:49→18:30)
[2018-04-05] MEDS: ZESTRIL PO SCH (10:53)
[2018-04-05] MEDS: HumaLOG SUB-Q SCH ×4 (10:54→21:49)
--- NOTE | 2018-04-05 12:03 | Progress Note ---
Assessment and Plan Maintain pressure dressing over ICD generator pocket. H&H in am. - Patient Problems (1) Implantable cardioverter-defibrillator pocket hematoma Current Visit: Yes Status: Acute (2) Anemia Current Visit: Yes Status: Acute (3) Anticoagulated on Coumadin Current Visit: Yes Status: Chronic (4) Coronary artery disease Current Visit: Yes Status: Chronic Qualifiers: Coronary Disease-Associated Artery/Lesion type: [place] artery [place] vs. transplanted heart: unspecified whether [place] or transplanted heart (5) LV (left ventricular) mural thrombus Current Visit: Yes Status: Chronic (6) Ischemic cardiomyopathy Current Visit: Yes Status: Chronic (7) Hypertension Current Visit: Yes Status: Chronic Qualifiers: Hypertension type: essential hypertension Qualified Code(s): I10 - Essential (primary) hypertension (8) ETOH abuse Current Visit: Yes Status: Chronic Subjective Date of service: 04/05/18 Principal diagnosis: ICD pocket hematoma, LV thrombus, Ischemic CMP Interval history: No complaint. Objective Vital Signs Temp Pulse Resp BP Pulse Ox 04/05/18 10:42 83 117/63 04/05/18 07:37 98.1 F 77 18 102/60 95 04/05/18 05:11 98.2 F 76 20 100/65 98 04/04/18 23:56 99.0 F 92 H 20 113/63 94 04/04/18 23:29 78 04/04/18 19:36 98.5 F 88 20 117/62 96 04/04/18 19:35 20 04/04/18 17:12 98.6 F 18 110/68 04/04/18 12:00 89 - Physical Examination General: No Apparent Distress HEENT: Positive: EOMI, Normocephaly, Mucus Membranes Moist Neck: Positive: neck supple, trachea midline Cardiac: Positive: Reg Rate and Rhythm, S1/S2 Lungs: Positive: clear to auscultation Neuro: Positive: Grossly Intact Abdomen: Positive: Soft, Active Bowel Sounds. Negative: Tender Skin: Positive: Other (AICD implantation site swelling, pain and redness in pressure dressing) Musculoskeletal: Normal Range of Motion Extremities: Present: normal. Absent: edema - Labs and Meds Coagulation 04/05/18 Range/Units 05:51 PT 26.3 H (12.2-14.9) Sec. INR 2.24 H (0.87-1.13) CBC 04/05/18 Range/Units 05:51 WBC 6.7 (4.5-11.0) K/mm3 RBC 3.14 L (3.65-5.03) M/mm3 Hgb 9.4 L (11.8-15.2) gm/dl Hct 26.9 L (35.5-45.6) % Plt Count 394 (140-440) K/mm3 - Imaging and Cardiology EKG: image reviewed Echo: report reviewed (03/14/2018: EF 30-35%, mild LVH, mid anterior, apical septal, apical anterior and apical lateral wall segments dyskinetic, well organized mural apical thrombus, impaired relaxation) Cardiac cath: report reviewed (01/21/2018 for STEMI showed 90% mid LAD stenosis with CLARITZA II flow distally, 100% RCA TOGGLER, 80% ALOM. 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 For these reasons the decision was made to defer intervention and manage conservatively. ) - Telemetry EKG Rhythm: Sinus Rhythm - EKG Sinus rhythms and dysrhythmias: sinus rhythm Myocardial infarction: inferior [place] (old age inde
--- NOTE | 2018-04-05 18:05 | Progress Note ---
Assessment and Plan Assessment and plan: Chest pain and swelling at site of AICD. ID Physician consulted. Interrogation revealed proper functioning hematoma versus infection Coronary artery disease Diabetes mellitus type 2. Fingerstick q ac and hs Left ventricularl thrombus Was on On Coumadin Ischemic cardiomyopathy Hypertension. Monitor BP Hyperlipidemia Full code status History Interval history: Chest pain left chest wall and swelling at site of AICD placement Hospitalist Physical - Physical exam Narrative exam: GEN: Not in acute distress, lying in bed HEENT: Normocephalic, atraumatic, Neck: supple, No JVD Lungs: Clear to auscultation bilaterally, no crackles Heart:S1 and S2 reg, no murmurs, rubs or gallop, tender, swelling left upper chest wall at site of AICD Abd:soft, tender, non distended,Normal bowel sounds Ext: No edema, no clubbing, no cyanosis Neuro: Awake, alert, oriented x 3, no focal signs - Constitutional Vitals: Temp Pulse Resp BP Pulse Ox 98.1 F 83 18 117/63 95 04/05/18 07:37 04/05/18 10:42 04/05/18 07:37 04/05/18 10:42 04/05/18 07:37 General appearance: Present: no acute distress Results - Labs CBC & Chem 7: 04/06/18 06:49 04/06/18 06:49 Labs: Laboratory Last Values WBC 6.7 K/mm3 (4.5-11.0) 04/05/18 05:51 RBC 3.14 M/mm3 (3.65-5.03) L 04/05/18 05:51 Hgb 9.4 gm/dl (11.8-15.2) L 04/05/18 05:51 Hct 26.9 % (35.5-45.6) L 04/05/18 05:51 MCV 85 fl (84-94) 04/05/18 05:51 MCH 30 pg (28-32) 04/05/18 05:51 MCHC 35 % (32-34) H 04/05/18 05:51 RDW 19.8 % (13.2-15.2) H 04/05/18 05:51 Plt Count 394 K/mm3 (140-440) 04/05/18 05:51 Lymph % (Auto) 24.1 % (13.4-35.0) 04/04/18 05:28 [place] % (Auto) 9.0 % (0.0-7.3) H 04/04/18 05:28 Eos % (Auto) 3.4 % (0.0-4.3) 04/04/18 05:28 Baso % (Auto) 0.3 % (0.0-1.8) 04/04/18 05:28 Lymph # 2.1 K/mm3 (1.2-5.4) 04/04/18 05:28 [place] # 0.8 K/mm3 (0.0-0.8) 04/04/18 05:28 Eos # 0.3 K/mm3 (0.0-0.4) 04/04/18 05:28 Baso # 0.0 K/mm3 (0.0-0.1) 04/04/18 05:28 Seg Neutrophils % 63.2 % (40.0-70.0) 04/04/18 05:28 Seg Neutrophils # 5.5 K/mm3 (1.8-7.7) 04/04/18 05:28 PT 26.3 Sec. (12.2-14.9) H 04/05/18 05:51 INR 2.24 (0.87-1.13) H 04/05/18 05:51 APTT 74.9 Sec. (24.2-36.6) H* 04/03/18 17:17 Sodium 135 mmol/L (137-145) L 04/04/18 05:28 Potassium 3.7 mmol/L (3.6-5.0) 04/04/18 05:28 Chloride 99.4 mmol/L (98-107) 04/04/18 05:28 Carbon Dioxide 24 mmol/L (22-30) 04/04/18 05:28 Anion Gap 15 mmol/L 04/04/18 05:28 BUN 11 mg/dL (9-20) 04/04/18 05:28 Creatinine 0.7 mg/dL (0.8-1.5) L 04/04/18 05:28 Estimated GFR > 60 ml/min 04/04/18 05:28 BUN/Creatinine Ratio 16 % 04/04/18 05:28 Glucose 128 mg/dL (75-100) H 04/04/18 05:28 POC Glucose 133 (70-105) H 04/05/18 17:07 Hemoglobin A1c 7.4 % (4-6) H 04/03/18 21:50 Calcium 9.0 mg/dL (8.4-10.2) 04/04/18 05:28 Total Bilirubin 0.60 mg/dL (0.1-1.2) 04/04/18 05:28 AST 18 units/L (5-40) 04/04/18 05:28 ALT 25 units/L (7-56) 04/04/18 05:28 Alkaline Phosphatase 134 units/L (35-129) H 04/04/18 05:28 Troponin T < 0.010 ng/mL (0.00-0.029) 04/03/18 19:20 NT-Pro-B Natriuret Pep 740.8 pg/mL (0-900) 04/03/18 14:46 Total Protein 7.2 g/dL (6.3-8.2) 04/04/18 05:28 Albumin 3.4 g/dL (3.9-5) L 04/04/18 05:28 Albumin/Globulin Ratio 0.9 % 04/04/18 05:28
[2018-04-05] MEDS: SODIUM CHLORIDE FLUSH SYRINGE 10 ML IV SCH ×2 (21:41→22:34)
[2018-04-06] MEDS: PERCOCET 5/325 PO PRN ×2 (06:19→20:23)
[2018-04-06] MEDS: VANCOMYCIN 1,750 MG in NACL 0.9% 500 ML 500 ML IV SCH (06:19)
[2018-04-06 07:20] LABS: Hematocrit 28.8 % (35.5-45.6); Hemoglobin 9.7 gm/dl (11.8-15.2); Mean Corpuscular HGB Conc 34 % (32-34); Mean Corpuscular Hemoglobin 29 pg (28-32); Mean Corpuscular Volume 86 fl (84-94); Platelet Count 424 K/mm3 (140-440); Red Blood Count 3.35 M/mm3 (3.65-5.03); Red Cell Distribution Width 19.6 % (13.2-15.2)
[2018-04-06 07:32] LABS: INR 1.6 (0.87-1.13)
[2018-04-06 07:37] LABS: BUN/Creatinine Ratio 17; Blood Urea Nitrogen 12 mg/dL (9-20); Calcium 8.6 mg/dL (8.4-10.2); Hemolysis Index 1
[2018-04-06] MEDS: PEPCID PO SCH ×2 (10:19→21:39)
[2018-04-06] MEDS: COREG PO SCH ×2 (10:20→21:39)
[2018-04-06] MEDS: BABY ASPIRIN PO SCH (10:20)
[2018-04-06] MEDS: ZESTRIL PO SCH (10:21)
[2018-04-06] MEDS: SODIUM CHLORIDE FLUSH SYRINGE 10 ML IV SCH ×2 (10:21→21:39)
--- NOTE | 2018-04-06 12:19 | Progress Note ---
Assessment and Plan Assessment and plan: Chest pain and swelling at site of AICD. ID Physician consulted. Interrogation revealed proper functioning hematoma versus infection No fever or WBC, cultures neg, so likely hematoma. Coronary artery disease Diabetes mellitus type 2. Fingerstick q ac and hs Left ventricularl thrombus Was On Coumadin Ischemic cardiomyopathy Hypertension. Monitor BP Hyperlipidemia Full code status History Interval history: Less chest pain left chest wall at site of AICD placement Hospitalist Physical - Physical exam Narrative exam: GEN: Not in acute distress, lying in bed HEENT: Normocephalic, atraumatic, Neck: supple, No JVD Lungs: Clear to auscultation bilaterally, no crackles Heart:S1 and S2 reg, no murmurs, rubs or gallop, tender, swelling left upper chest wall at site of AICD Abd:soft, tender, non distended,Normal bowel sounds Ext: No edema, no clubbing, no cyanosis Neuro: Awake, alert, oriented x 3, no focal signs - Constitutional Vitals: Temp Pulse Resp BP Pulse Ox 98.4 F 79 16 108/70 93 04/06/18 09:00 04/06/18 09:00 04/06/18 09:00 04/06/18 09:00 04/06/18 09:00 General appearance: Present: no acute distress Results - Labs CBC & Chem 7: 04/06/18 06:49 04/06/18 06:49 Labs: Laboratory Last Values WBC 7.2 K/mm3 (4.5-11.0) 04/06/18 06:49 RBC 3.35 M/mm3 (3.65-5.03) L 04/06/18 06:49 Hgb 9.7 gm/dl (11.8-15.2) L 04/06/18 06:49 Hct 28.8 % (35.5-45.6) L 04/06/18 06:49 MCV 86 fl (84-94) 04/06/18 06:49 MCH 29 pg (28-32) 04/06/18 06:49 MCHC 34 % (32-34) 04/06/18 06:49 RDW 19.6 % (13.2-15.2) H 04/06/18 06:49 Plt Count 424 K/mm3 (140-440) 04/06/18 06:49 Lymph % (Auto) 24.1 % (13.4-35.0) 04/04/18 05:28 [place] % (Auto) 9.0 % (0.0-7.3) H 04/04/18 05:28 Eos % (Auto) 3.4 % (0.0-4.3) 04/04/18 05:28 Baso % (Auto) 0.3 % (0.0-1.8) 04/04/18 05:28 Lymph # 2.1 K/mm3 (1.2-5.4) 04/04/18 05:28 [place] # 0.8 K/mm3 (0.0-0.8) 04/04/18 05:28 Eos # 0.3 K/mm3 (0.0-0.4) 04/04/18 05:28 Baso # 0.0 K/mm3 (0.0-0.1) 04/04/18 05:28 Seg Neutrophils % 63.2 % (40.0-70.0) 04/04/18 05:28 Seg Neutrophils # 5.5 K/mm3 (1.8-7.7) 04/04/18 05:28 PT 20.0 Sec. (12.2-14.9) H 04/06/18 06:49 INR 1.60 (0.87-1.13) H 04/06/18 06:49 APTT 74.9 Sec. (24.2-36.6) H* 04/03/18 17:17 Sodium 138 mmol/L (137-145) 04/06/18 06:49 Potassium 4.1 mmol/L (3.6-5.0) 04/06/18 06:49 Chloride 103.4 mmol/L (98-107) 04/06/18 06:49 Carbon Dioxide 23 mmol/L (22-30) 04/06/18 06:49 Anion Gap 16 mmol/L 04/06/18 06:49 BUN 12 mg/dL (9-20) 04/06/18 06:49 Creatinine 0.7 mg/dL (0.8-1.5) L 04/06/18 06:49 Estimated GFR > 60 ml/min 04/06/18 06:49 BUN/Creatinine Ratio 17 % 04/06/18 06:49 Glucose 154 mg/dL (75-100) H 04/06/18 06:49 POC Glucose 170 (70-105) H 04/06/18 11:34 Hemoglobin A1c 7.4 % (4-6) H 04/03/18 21:50 Calcium 8.6 mg/dL (8.4-10.2) 04/06/18 06:49 Total Bilirubin 0.60 mg/dL (0.1-1.2) 04/04/18 05:28 AST 18 units/L (5-40) 04/04/18 05:28 ALT 25 units/L (7-56) 04/04/18 05:28 Alkaline Phosphatase 134 units/L (35-129) H 04/04/18 05:28 Troponin T < 0.010 ng/mL (0.00-0.029) 04/03/18 19:20 NT-Pro-B Natriuret Pep 740.8 pg/mL (0-900) 04/03/18 14:46 Total Protein 7.2 g/dL (6.3-8.2) 04/04/18 05:28 Albumin 3.4 g/dL (3.9-5) L 04/04/18 05:28 Albumin/Globulin Ratio 0.9 % 04/04/18 05:28
--- NOTE | 2018-04-06 12:50 | Progress Note ---
Assessment and Plan Maintain pressure dressing over gen pocket. - Patient Problems (1) Implantable cardioverter-defibrillator pocket hematoma Current Visit: Yes Status: Acute (2) Anemia Current Visit: Yes Status: Acute (3) Anticoagulated on Coumadin Current Visit: Yes Status: Chronic (4) Coronary artery disease Current Visit: Yes Status: Chronic Qualifiers: Coronary Disease-Associated Artery/Lesion type: [place] artery [place] vs. transplanted heart: unspecified whether [place] or transplanted heart (5) LV (left ventricular) mural thrombus Current Visit: Yes Status: Chronic (6) Ischemic cardiomyopathy Current Visit: Yes Status: Chronic (7) Hypertension Current Visit: Yes Status: Chronic Qualifiers: Hypertension type: essential hypertension Qualified Code(s): I10 - Essential (primary) hypertension (8) ETOH abuse Current Visit: Yes Status: Chronic Subjective Date of service: 04/06/18 Principal diagnosis: ICD pocket hematoma, LV thrombus, Ischemic CMP Interval history: No new complaint. Objective Vital Signs Temp Pulse Resp BP Pulse Ox 04/06/18 09:00 98.4 F 79 16 108/70 93 04/06/18 04:05 98.1 F 86 20 101/60 94 04/06/18 00:01 97.6 F 85 20 118/68 94 04/06/18 00:00 83 04/05/18 19:52 98.4 F 82 20 111/68 95 04/05/18 15:53 20 97/58 - Physical Examination General: No Apparent Distress HEENT: Positive: EOMI, Normocephaly, Mucus Membranes Moist Neck: Positive: neck supple, trachea midline Cardiac: Positive: Reg Rate and Rhythm, S1/S2 Lungs: Positive: clear to auscultation Neuro: Positive: Grossly Intact Abdomen: Positive: Soft, Active Bowel Sounds. Negative: Tender Skin: Positive: Other (AICD implantation site swelling, pain and redness in pressure dressing) Musculoskeletal: Normal Range of Motion Extremities: Present: normal. Absent: edema - Labs and Meds Coagulation 04/06/18 Range/Units 06:49 PT 20.0 H (12.2-14.9) Sec. INR 1.60 H (0.87-1.13) CBC 04/06/18 Range/Units 06:49 WBC 7.2 (4.5-11.0) K/mm3 RBC 3.35 L (3.65-5.03) M/mm3 Hgb 9.7 L (11.8-15.2) gm/dl Hct 28.8 L (35.5-45.6) % Plt Count 424 (140-440) K/mm3 Comprehensive Metabolic Panel 04/06/18 Range/Units 06:49 Sodium 138 (137-145) mmol/L Potassium 4.1 (3.6-5.0) mmol/L Chloride 103.4 (98-107) mmol/L Carbon Dioxide 23 (22-30) mmol/L BUN 12 (9-20) mg/dL Creatinine 0.7 L (0.8-1.5) mg/dL Glucose 154 H (75-100) mg/dL Calcium 8.6 (8.4-10.2) mg/dL - Imaging and Cardiology EKG: image reviewed Echo: report reviewed (03/14/2018: EF 30-35%, mild LVH, mid anterior, apical septal, apical anterior and apical lateral wall segments dyskinetic, well organized mural apical thrombus, impaired relaxation) Cardiac cath: report reviewed (01/21/2018 for STEMI showed 90% mid LAD stenosis with CLARITZA II flow distally, 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 Due to chest symptoms starting > 48 hours prior to presentation, patient was chest pain free upon entering engineering lab technician, q-waves anterior and inferior, and bedside TTE prior to case with thinned out apex with fixed LV thrombus, this is likely late presentation of LAD infarction which occurred > 48 hours ago with superimposed chronic ischemic heart disease. For these reasons the decision was made to defer intervention and manage conservatively. ) - Telemetry EKG Rhythm: Sinus Rhythm - EKG Sinus rhythms and dysrhythmias: sinus rhythm Myocardial infarction: inferior MD (old age inde
--- NOTE | 2018-04-06 13:14 | Progress Note ---
Assessment and Plan 62-year-old male with hypertension, hyperlipidemia, coronary artery disease with a recent myocardial infarction about one month ago requiring a prolonged hospital stay. He had an AICD inserted [address] Perez now with: 1) Significant pain and swelling at AICD site: likely secondary to hematoma since patient has been on anticoagulation. No fever, leucocytosis, blood cultures also negative thus far. Hence, infection seems very less likely. Will discontinue antibiotics. Recommendations: - discontinued Vancomycin Will sign off. Please call with questions. MD G[facility] C: [phone] O: [phone] Subjective Date of service: 04/06/18 Principal diagnosis: ICD pocket hematoma, LV thrombus, Ischemic CMP Interval history: Denies any fever or chills. Pain at AICD site is much better compared to admission. No nausea, vomiting. No rash. Objective - Exam Narrative Exam: Physical Exam: Constitutional: Alert, cooperative. No acute distress Head, Ears, Nose: Normocephalic, atraumatic. External ears, nose normal Eyes: Conjunctivae/corneas clear. No icterus. No ptosis. Neck: Supple, no meningeal signs Cardiovascular: S1, S2 normal. Respiratory: Good air entry, clear to auscultation bilaterally GI: Soft, non-tender; bowel sounds normal. No peritoneal signs Musculoskeletal: No pedal edema, no cyanosis. Significant swelling, tenderness at left upper chest AICD site, no drainage, purulence or fluctuant swelling, there is mild warmth and erythema. Skin: No rash or abscess Neurological: Awake, alert, oriented. No gross abnormality - Constitutional Vitals: Vital Signs Temp Pulse Resp BP Pulse Ox 98.4 F 79 16 108/70 93 04/06/18 09:00 04/06/18 09:00 04/06/18 09:00 04/06/18 09:00 04/06/18 09:00 Temperature -Last 24 Hours Temperature 98.4 F Temperature 98.1 F Temperature 97.6 F Temperature 98.4 F - Labs CBC & Chem 7: 04/06/18 06:49 04/06/18 06:49 Labs: Cultures: 04/04/2018 Blood cultures: negative thus far. Abnormal lab results 04/05/18 04/05/18 04/06/18 Range/Units 17:07 21:49 06:49 RBC (3.65-5.03) M/mm3 Hgb (11.8-15.2) gm/dl Hct (35.5-45.6) % RDW (13.2-15.2) % PT 20.0 H (12.2-14.9) Sec. INR 1.60 H (0.87-1.13) Creatinine (0.8-1.5) mg/dL Glucose (75-100) mg/dL POC Glucose 133 H 153 H (70-105) 04/06/18 04/06/18 04/06/18 Range/Units 06:49 06:49 07:05 RBC 3.35 L (3.65-5.03) M/mm3 Hgb 9.7 L (11.8-15.2) gm/dl Hct 28.8 L (35.5-45.6) % RDW 19.6 H (13.2-15.2) % PT (12.2-14.9) Sec. INR (0.87-1.13) Creatinine 0.7 L (0.8-1.5) mg/dL Glucose 154 H (75-100) mg/dL POC Glucose 146 H (70-105) 04/06/18 Range/Units 11:34 RBC (3.65-5.03) M/mm3 Hgb (11.8-15.2) gm/dl Hct (35.5-45.6) % RDW (13.2-15.2) % PT (12.2-14.9) Sec. INR (0.87-1.13) Creatinine (0.8-1.5) mg/dL Glucose (75-100) mg/dL POC Glucose 170 H (70-105)
[2018-04-06] MEDS: HumaLOG SUB-Q SCH (21:40)
[2018-04-06] MEDS: DILAUDID IV PRN (21:44)
[2018-04-07 06:13] LABS: Hematocrit 29.9 % (35.5-45.6); Mean Corpuscular HGB Conc 33 % (32-34); Mean Corpuscular Hemoglobin 29 pg (28-32); Mean Corpuscular Volume 87 fl (84-94); Platelet Count 470 K/mm3 (140-440); Red Blood Count 3.46 M/mm3 (3.65-5.03); Red Cell Distribution Width 19.6 % (13.2-15.2)
[2018-04-07 06:23] LABS: INR 1.27 (0.87-1.13)
[2018-04-07 06:37] LABS: BUN/Creatinine Ratio 14; Blood Urea Nitrogen 11 mg/dL (9-20); Hemolysis Index 2
[2018-04-07] MEDS: HumaLOG SUB-Q SCH ×4 (07:37→23:11)
[2018-04-07] MEDS: COREG PO SCH ×3 (08:53→21:19)
[2018-04-07] MEDS: PEPCID PO SCH ×3 (08:53→21:19)
[2018-04-07] MEDS: BABY ASPIRIN PO SCH ×2 (08:53→17:47)
[2018-04-07] MEDS: SODIUM CHLORIDE FLUSH SYRINGE 10 ML IV SCH ×3 (08:55→21:20)
[2018-04-07] MEDS: ZESTRIL PO SCH (09:26)
--- NOTE | 2018-04-07 12:13 | Progress Note ---
Assessment and Plan ID input appreciated. Will plan for AICD hematoma evacuation tomorrow. NPO after MN. The patient has been seen in conjunction with Dr. Perez who agrees with the assessment and plan of care. - Patient Problems (1) Implantable cardioverter-defibrillator mechanical complication Current Visit: Yes Status: Acute (2) Elevated INR (international normalized ratio) Current Visit: Yes Status: Acute (3) Anticoagulated on Coumadin Current Visit: Yes Status: Chronic (4) LV (left ventricular) mural thrombus Current Visit: Yes Status: Chronic (5) Ischemic cardiomyopathy Current Visit: Yes Status: Chronic (6) Coronary artery disease Current Visit: Yes Status: Chronic Qualifiers: Coronary Disease-Associated Artery/Lesion type: [place] artery [place] vs. transplanted heart: unspecified whether [place] or transplanted heart (7) ETOH abuse Current Visit: Yes Status: Chronic (8) Tobacco use Current Visit: Yes Status: Chronic Subjective Date of service: 04/07/18 Principal diagnosis: ICD pocket hematoma, LV thrombus, Ischemic CMP Interval history: pt resting comfortably in bed, no current cardiac complaints. he states AICD implantation site pain has greatly improved. pressure dressing has been in place over the weekend. Objective Last Vital Signs Temp 98.6 F 04/07/18 11:42 Pulse 87 04/07/18 11:42 Resp 20 04/07/18 11:42 BP 104/58 04/07/18 11:42 Pulse Ox 97 04/07/18 11:42 - Physical Examination General: No Apparent Distress HEENT: Positive: EOMI, Normocephaly, Mucus Membranes Moist Neck: Positive: neck supple, trachea midline Cardiac: Positive: Reg Rate and Rhythm, S1/S2 Lungs: Positive: clear to auscultation Neuro: Positive: Grossly Intact Abdomen: Positive: Soft, Active Bowel Sounds. Negative: Tender Skin: Positive: Other (AICD implantation site swelling, pressure dressing in place ) Musculoskeletal: Normal Range of Motion Extremities: Present: normal. Absent: edema - Labs and Meds Coagulation 04/07/18 Range/Units 05:31 PT 16.6 H (12.2-14.9) Sec. INR 1.27 H (0.87-1.13) CBC 04/07/18 Range/Units 05:31 WBC 8.3 (4.5-11.0) K/mm3 RBC 3.46 L (3.65-5.03) M/mm3 Hgb 10.0 L (11.8-15.2) gm/dl Hct 29.9 L (35.5-45.6) % Plt Count 470 H (140-440) K/mm3 Comprehensive Metabolic Panel 04/07/18 Range/Units 05:31 Sodium 138 (137-145) mmol/L Potassium 3.9 (3.6-5.0) mmol/L Chloride 102.7 (98-107) mmol/L Carbon Dioxide 23 (22-30) mmol/L BUN 11 (9-20) mg/dL Creatinine 0.8 (0.8-1.5) mg/dL Glucose 149 H (75-100) mg/dL Calcium 9.0 (8.4-10.2) mg/dL - Imaging and Cardiology EKG: image reviewed Echo: report reviewed (03/14/2018: EF 30-35%, mild LVH, mid anterior, apical septal, apical anterior and apical lateral wall segments dyskinetic, well organized mural apical thrombus, impaired relaxation) Cardiac cath: report reviewed (01/21/2018 for STEMI showed 90% mid LAD stenosis with CLARITZA II flow distally, 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 Due to chest symptoms starting > 48 hours prior to presentation, patient was chest pain free upon entering quality lab technician, q-waves anterior and inferior, and bedside TTE prior to case with thinned out apex with fixed LV thrombus, this is likely late presentation of LAD infarction which occurred > 48 hours ago with superimposed chronic ischemic heart disease. For these reasons the decision was made to defer intervention and manage conservatively. ) - Telemetry EKG Rhythm: Sinus Rhythm - EKG Sinus rhythms and dysrhythmias: sinus rhythm Myocardial infarction: inferior MT (old age inde
--- NOTE | 2018-04-07 13:02 | Progress Note ---
Assessment and Plan Assessment and plan: Chest pain and swelling at site of AICD likely due to hematoma. ID Physician has determined no infection, stopped empiric Antibiotics Interrogation revealed proper functioning hematoma at site. For evacuation tomorrow No fever or WBC, cultures neg, so likely hematoma. Coronary artery disease Diabetes mellitus type 2. Fingerstick q ac and hs Left ventricular thrombus Was On Coumadin, on hold because of hematoma Ischemic cardiomyopathy Hypertension. Monitor BP Hyperlipidemia Full code status History Interval history: Less chest pain left chest wall at site of AICD placement, no fever Hospitalist Physical - Physical exam Narrative exam: GEN: Not in acute distress, lying in bed HEENT: Normocephalic, atraumatic, Neck: supple, No JVD Lungs: Clear to auscultation bilaterally, no crackles Heart:S1 and S2 reg, no murmurs, rubs or gallop, tender, less swelling left upper chest wall at site of AICD Abd:soft, tender, non distended,Normal bowel sounds Ext: No edema, no clubbing, no cyanosis Neuro: Awake, alert, oriented x 3, no focal signs - Constitutional Vitals: Temp Pulse Resp BP Pulse Ox 98.6 F 87 20 104/58 97 04/07/18 11:42 04/07/18 11:42 04/07/18 11:42 04/07/18 11:42 04/07/18 11:42 General appearance: Present: no acute distress Results - Labs CBC & Chem 7: 04/07/18 05:31 04/07/18 05:31 Labs: Laboratory Last Values WBC 8.3 K/mm3 (4.5-11.0) 04/07/18 05:31 RBC 3.46 M/mm3 (3.65-5.03) L 04/07/18 05:31 Hgb 10.0 gm/dl (11.8-15.2) L 04/07/18 05:31 Hct 29.9 % (35.5-45.6) L 04/07/18 05:31 MCV 87 fl (84-94) 04/07/18 05:31 MCH 29 pg (28-32) 04/07/18 05:31 MCHC 33 % (32-34) 04/07/18 05:31 RDW 19.6 % (13.2-15.2) H 04/07/18 05:31 Plt Count 470 K/mm3 (140-440) H 04/07/18 05:31 Lymph % (Auto) 24.1 % (13.4-35.0) 04/04/18 05:28 [place] % (Auto) 9.0 % (0.0-7.3) H 04/04/18 05:28 Eos % (Auto) 3.4 % (0.0-4.3) 04/04/18 05:28 Baso % (Auto) 0.3 % (0.0-1.8) 04/04/18 05:28 Lymph # 2.1 K/mm3 (1.2-5.4) 04/04/18 05:28 [place] # 0.8 K/mm3 (0.0-0.8) 04/04/18 05:28 Eos # 0.3 K/mm3 (0.0-0.4) 04/04/18 05:28 Baso # 0.0 K/mm3 (0.0-0.1) 04/04/18 05:28 Seg Neutrophils % 63.2 % (40.0-70.0) 04/04/18 05:28 Seg Neutrophils # 5.5 K/mm3 (1.8-7.7) 04/04/18 05:28 PT 16.6 Sec. (12.2-14.9) H 04/07/18 05:31 INR 1.27 (0.87-1.13) H 04/07/18 05:31 APTT 74.9 Sec. (24.2-36.6) H* 04/03/18 17:17 Sodium 138 mmol/L (137-145) 04/07/18 05:31 Potassium 3.9 mmol/L (3.6-5.0) 04/07/18 05:31 Chloride 102.7 mmol/L (98-107) 04/07/18 05:31 Carbon Dioxide 23 mmol/L (22-30) 04/07/18 05:31 Anion Gap 16 mmol/L 04/07/18 05:31 BUN 11 mg/dL (9-20) 04/07/18 05:31 Creatinine 0.8 mg/dL (0.8-1.5) 04/07/18 05:31 Estimated GFR > 60 ml/min 04/07/18 05:31 BUN/Creatinine Ratio 14 % 04/07/18 05:31 Glucose 149 mg/dL (75-100) H 04/07/18 05:31 POC Glucose 148 (70-105) H 04/07/18 03:52 Hemoglobin A1c 7.4 % (4-6) H 04/03/18 21:50 Calcium 9.0 mg/dL (8.4-10.2) 04/07/18 05:31 Total Bilirubin 0.60 mg/dL (0.1-1.2) 04/04/18 05:28 AST 18 units/L (5-40) 04/04/18 05:28 ALT 25 units/L (7-56) 04/04/18 05:28 Alkaline Phosphatase 134 units/L (35-129) H 04/04/18 05:28 Troponin T < 0.010 ng/mL (0.00-0.029) 04/03/18 19:20 NT-Pro-B Natriuret Pep 740.8 pg/mL (0-900) 04/03/18 14:46 Total Protein 7.2 g/dL (6.3-8.2) 04/04/18 05:28 Albumin 3.4 g/dL (3.9-5) L 04/04/18 05:28 Albumin/Globulin Ratio 0.9 % 04/04/18 05:28
[2018-04-07] MEDS: DILAUDID IV PRN (13:28)
[2018-04-07] MEDS: PERCOCET 5/325 PO PRN (17:45)
[2018-04-08] MEDS: DILAUDID IV PRN (04:29)
[2018-04-08 06:59] LABS: Basophils # (Auto) 0.1 K/mm3 (0.0-0.1); Basophils % (Auto) 1.1 % (0.0-1.8); Eosinophils # (Auto) 0.5 K/mm3 (0.0-0.4); Eosinophils % (Auto) 4.5 % (0.0-4.3); Hematocrit 28.8 % (35.5-45.6); Hemoglobin 9.8 gm/dl (11.8-15.2); Lymphocytes # (Auto) 2.8 K/mm3 (1.2-5.4); Lymphocytes % (Auto) 25.6 % (13.4-35.0); Mean Corpuscular HGB Conc 34 % (32-34); Mean Corpuscular Hemoglobin 29 pg (28-32); Mean Corpuscular Volume 85 fl (84-94); Monocytes # (Auto) 0.9 K/mm3 (0.0-0.8); Monocytes % (Auto) 8.7 % (0.0-7.3); Platelet Count 512 K/mm3 (140-440); Red Blood Count 3.39 M/mm3 (3.65-5.03); Red Cell Distribution Width 19.9 % (13.2-15.2)
[2018-04-08 07:04] LABS: BUN/Creatinine Ratio 10; Blood Urea Nitrogen 8 mg/dL (9-20); Calcium 9.2 mg/dL (8.4-10.2); Hemolysis Index 0
[2018-04-08 07:07] LABS: INR 1.16 (0.87-1.13)
[2018-04-08] MEDS: HumaLOG SUB-Q SCH ×4 (08:00→21:15)
[2018-04-08] MEDS: SODIUM CHLORIDE FLUSH SYRINGE 10 ML IV SCH ×2 (10:32→21:15)
[2018-04-08] MEDS: BABY ASPIRIN PO SCH (10:32)
[2018-04-08] MEDS: COREG PO SCH ×2 (10:32→21:15)
[2018-04-08] MEDS: ZESTRIL PO SCH (10:32)
[2018-04-08] MEDS: PEPCID PO SCH ×2 (10:32→21:15)
[2018-04-08] MEDS: MORPHINE IV PRN (11:13)
[2018-04-08] MEDS ORDERED: NACL 0.9% 1,000 ML, VANCOMYCIN VIAL 1,000 MG IR ONE (11:47)
[2018-04-08] MEDS ORDERED: SUBLIMAZE ONE (11:56)
[2018-04-08] MEDS ORDERED: DIPRIVAN 10 MG/ML 1,000 MG/100 ML BOTTLE IV ONE (11:56)
[2018-04-08] MEDS ORDERED: VERSED ONE (11:56)
[2018-04-08] MEDS ORDERED: ANCEF/STERILE WATER 2 GM/20 ML 2 GM/20 ML SYRINGE IV ONE (12:08)
[2018-04-08] MEDS ORDERED: NACL 0.9% 500 ML IR ONE (12:08)
[2018-04-08] MEDS ORDERED: NACL 0.9% 1000 ML 1,000 ML ONE (12:09)
[2018-04-08] MEDS: XYLOCAINE 1% 20 mL ONE ×3 (12:18→13:05)
[2018-04-08] MEDS: MARCAINE 0.5% INFILTRATI ONE ×3 (12:18→13:06)
--- NOTE | 2018-04-08 12:24 | Progress Note ---
Assessment and Plan Assessment and plan: Chest pain and swelling at site of AICD likely due to hematoma. ID Physician has determined no infection, stopped empiric Antibiotics Interrogation revealed proper functioning hematoma at site. For evacuation today No fever or WBC, cultures neg, so likely hematoma. Coronary artery disease Diabetes mellitus type 2. Fingerstick q ac and hs Left ventricular thrombus Was On Coumadin, on hold because of hematoma Ischemic cardiomyopathy Hypertension. Monitor BP Hyperlipidemia Full code status History Interval history: No new issues overnight Hospitalist Physical - Constitutional Vitals: Temp Pulse Resp BP Pulse Ox 98.8 F 89 18 100/63 97 04/08/18 08:00 04/08/18 08:02 04/08/18 08:00 04/08/18 08:00 04/08/18 08:02 General appearance: Present: no acute distress - EENT Eyes: Present: PERRL, EOM intact ENT: hearing intact, clear oral mucosa, dentition normal - Neck Neck: Present: supple, normal ROM - Respiratory Respiratory effort: normal Respiratory: bilateral: CTA - Cardiovascular Rhythm: regular Heart Sounds: Present: S1 & S2. Absent: gallop, rub - Extremities Extremities: no ischemia, No edema, Full ROM - Abdominal General gastrointestinal: soft, non-tender, non-distended, normal bowel sounds - Integumentary Integumentary: Present: clear, warm, dry - Neurologic Neurologic: CNII-XII intact, moves all extremities Results - Labs CBC & Chem 7: 04/08/18 05:47 04/08/18 05:47 Labs: Laboratory Last Values WBC 10.8 K/mm3 (4.5-11.0) 04/08/18 05:47 RBC 3.39 M/mm3 (3.65-5.03) L 04/08/18 05:47 Hgb 9.8 gm/dl (11.8-15.2) L 04/08/18 05:47 Hct 28.8 % (35.5-45.6) L 04/08/18 05:47 MCV 85 fl (84-94) 04/08/18 05:47 MCH 29 pg (28-32) 04/08/18 05:47 MCHC 34 % (32-34) 04/08/18 05:47 RDW 19.9 % (13.2-15.2) H 04/08/18 05:47 Plt Count 512 K/mm3 (140-440) H 04/08/18 05:47 Lymph % (Auto) 25.6 % (13.4-35.0) 04/08/18 05:47 [place] % (Auto) 8.7 % (0.0-7.3) H 04/08/18 05:47 Eos % (Auto) 4.5 % (0.0-4.3) H 04/08/18 05:47 Baso % (Auto) 1.1 % (0.0-1.8) 04/08/18 05:47 Lymph # 2.8 K/mm3 (1.2-5.4) 04/08/18 05:47 [place] # 0.9 K/mm3 (0.0-0.8) H 04/08/18 05:47 Eos # 0.5 K/mm3 (0.0-0.4) H 04/08/18 05:47 Baso # 0.1 K/mm3 (0.0-0.1) 04/08/18 05:47 Seg Neutrophils % 60.1 % (40.0-70.0) 04/08/18 05:47 Seg Neutrophils # 6.5 K/mm3 (1.8-7.7) 04/08/18 05:47 PT 15.4 Sec. (12.2-14.9) H 04/08/18 05:47 INR 1.16 (0.87-1.13) H 04/08/18 05:47 APTT 74.9 Sec. (24.2-36.6) H* 04/03/18 17:17 Sodium 138 mmol/L (137-145) 04/08/18 05:47 Potassium 4.3 mmol/L (3.6-5.0) 04/08/18 05:47 Chloride 100.4 mmol/L (98-107) 04/08/18 05:47 Carbon Dioxide 26 mmol/L (22-30) 04/08/18 05:47 Anion Gap 16 mmol/L 04/08/18 05:47 BUN 8 mg/dL (9-20) L 04/08/18 05:47 Creatinine 0.8 mg/dL (0.8-1.5) 04/08/18 05:47 Estimated GFR > 60 ml/min 04/08/18 05:47 BUN/Creatinine Ratio 10 % 04/08/18 05:47 Glucose 126 mg/dL (75-100) H 04/08/18 05:47 POC Glucose 91 (70-105) 04/08/18 09:15 Hemoglobin A1c 7.4 % (4-6) H 04/03/18 21:50 Calcium 9.2 mg/dL (8.4-10.2) 04/08/18 05:47 Total Bilirubin 0.60 mg/dL (0.1-1.2) 04/04/18 05:28 AST 18 units/L (5-40) 04/04/18 05:28 ALT 25 units/L (7-56) 04/04/18 05:28 Alkaline Phosphatase 134 units/L (35-129) H 04/04/18 05:28 Troponin T < 0.010 ng/mL (0.00-0.029) 04/03/18 19:20 NT-Pro-B Natriuret Pep 740.8 pg/mL (0-900) 04/03/18 14:46 Total Protein 7.2 g/dL (6.3-8.2) 04/04/18 05:28 Albumin 3.4 g/dL (3.9-5) L 04/04/18 05:28 Albumin/Globulin Ratio 0.9 % 04/04/18 05:28
[2018-04-08] MEDS ORDERED: VANCOMYCIN VIAL 1,000 MG in NACL 0.9% 1,000 ML IRRIGATION ONE (12:45)
[2018-04-08] MEDS ORDERED: VANCOMYCIN/NS 1 GM/250 ML 1 GM/250 ML BAG IV ONE (14:00)
[2018-04-08] MEDS ORDERED: VANCOMYCIN/NS 1 GM/250 ML 1 GM/250 ML BAG IV SCH (15:00)
[2018-04-08] MEDS ORDERED: ROBINUL ONE (16:38)
[2018-04-09] MEDS: PERCOCET 5/325 PO PRN ×2 (00:01→21:33)
[2018-04-09] MEDS ORDERED: VANCOMYCIN/NS 1 GM/250 ML 1 GM/250 ML BAG IV ONE (02:00)
[2018-04-09 05:52] LABS: Basophils # (Auto) 0.1 K/mm3 (0.0-0.1); Basophils % (Auto) 1.3 % (0.0-1.8); Eosinophils # (Auto) 0.3 K/mm3 (0.0-0.4); Eosinophils % (Auto) 3.4 % (0.0-4.3); Hematocrit 29.5 % (35.5-45.6); Hemoglobin 9.9 gm/dl (11.8-15.2); Lymphocytes # (Auto) 2.6 K/mm3 (1.2-5.4); Lymphocytes % (Auto) 25.8 % (13.4-35.0); Mean Corpuscular HGB Conc 34 % (32-34); Mean Corpuscular Hemoglobin 29 pg (28-32); Mean Corpuscular Volume 86 fl (84-94); Monocytes % (Auto) 9.8 % (0.0-7.3); Platelet Count 506 K/mm3 (140-440); Red Blood Count 3.45 M/mm3 (3.65-5.03); Red Cell Distribution Width 19.9 % (13.2-15.2)
[2018-04-09 06:07] LABS: INR 1.19 (0.87-1.13)
[2018-04-09 06:08] LABS: BUN/Creatinine Ratio 11; Blood Urea Nitrogen 9 mg/dL (9-20); Hemolysis Index 1
[2018-04-09] MEDS: HumaLOG SUB-Q SCH ×5 (09:09→21:35)
[2018-04-09] MEDS: PEPCID PO SCH ×2 (09:10→21:34)
[2018-04-09] MEDS: BABY ASPIRIN PO SCH (09:21)
[2018-04-09] MEDS: ZESTRIL PO SCH (09:21)
[2018-04-09] MEDS: SODIUM CHLORIDE FLUSH SYRINGE 10 ML IV SCH ×2 (09:21→21:35)
[2018-04-09] MEDS: COREG PO SCH ×3 (09:25→21:34)
--- NOTE | 2018-04-09 11:11 | Progress Note ---
Assessment and Plan S/p AICD pocket hematoma evacuation yesterday. Currently stable cardiac status. Pt may discharge home from cardiology standpoint. At discharge, recommend PO Keflex, 500mg BID x 10 days. Also, pt may resume coumadin after follow up with [facility]. Pt states he will follow up with [facility] for post-hospital f/u and INR checks. Follow up in our [place] office for post-op incision check on 04/18/2018 @ 1: 00PM. The patient has been seen in conjunction with Dr. Perez who agrees with the assessment and plan of care. - Patient Problems (1) Implantable cardioverter-defibrillator mechanical complication Current Visit: Yes Status: Acute (2) Elevated INR (international normalized ratio) Current Visit: Yes Status: Acute (3) Anticoagulated on Coumadin Current Visit: Yes Status: Chronic (4) LV (left ventricular) mural thrombus Current Visit: Yes Status: Chronic (5) Ischemic cardiomyopathy Current Visit: Yes Status: Chronic (6) Coronary artery disease Current Visit: Yes Status: Chronic Qualifiers: Coronary Disease-Associated Artery/Lesion type: [place] artery [place] vs. transplanted heart: unspecified whether habematolel or transplanted heart (7) ETOH abuse Current Visit: Yes Status: Chronic (8) Tobacco use Current Visit: Yes Status: Chronic Subjective Date of service: 04/09/18 Principal diagnosis: ICD pocket hematoma, LV thrombus, Ischemic CMP Interval history: pt resting comfortably in bed, no current cardiac complaints. s/p AICD hematoma evacuation yesterday, states AICD site is much less sore today. Objective Last Vital Signs Temp 98.6 F 04/09/18 08:36 Pulse 82 04/09/18 08:36 Resp 18 04/09/18 08:36 BP 94/64 04/09/18 08:36 Pulse Ox 96 04/09/18 08:36 - Physical Examination General: No Apparent Distress HEENT: Positive: EOMI, Normocephaly, Mucus Membranes Moist Neck: Positive: neck supple, trachea midline Cardiac: Positive: Reg Rate and Rhythm, S1/S2 Lungs: Positive: clear to auscultation Neuro: Positive: Grossly Intact Abdomen: Positive: Soft, Active Bowel Sounds. Negative: Tender Skin: Positive: Other (AICD implantation site swelling, pressure dressing in place ) Musculoskeletal: Normal Range of Motion Extremities: Present: normal. Absent: edema - Labs and Meds Coagulation 10/03/18 Range/Units 05:24 PT 15.8 H (12.2-14.9) Sec. INR 1.19 H (0.87-1.13) CBC 04/09/18 Range/Units 05:24 WBC 10.0 (4.5-11.0) K/mm3 RBC 3.45 L (3.65-5.03) M/mm3 Hgb 9.9 L (11.8-15.2) gm/dl Hct 29.5 L (35.5-45.6) % Plt Count 506 H (140-440) K/mm3 Lymph # 2.6 (1.2-5.4) K/mm3 [place] # 1.0 H (0.0-0.8) K/mm3 Eos # 0.3 (0.0-0.4) K/mm3 Baso # 0.1 (0.0-0.1) K/mm3 Comprehensive Metabolic Panel 04/09/18 Range/Units 05:24 Sodium 135 L (137-145) mmol/L Potassium 4.1 (3.6-5.0) mmol/L Chloride 100.4 (98-107) mmol/L Carbon Dioxide 22 (22-30) mmol/L BUN 9 (9-20) mg/dL Creatinine 0.8 (0.8-1.5) mg/dL Glucose 196 H (75-100) mg/dL Calcium 9.0 (8.4-10.2) mg/dL - Imaging and Cardiology EKG: image reviewed Echo: report reviewed (03/14/2018: EF 30-35%, mild LVH, mid anterior, apical septal, apical anterior and apical lateral wall segments dyskinetic, well organized mural apical thrombus, impaired relaxation) Cardiac cath: report reviewed (01/21/2018 for STEMI showed 90% mid LAD stenosis with CLARITZA II flow distally, 100% RCA LAB COURIER, 80% ALOM. Due to chest symptoms starting > 48 hours prior to presentation, patient was chest pain free upon entering lab systems analyst, q-waves anterior and inferior, and bedside TTE prior to case with thinned out apex with fixed LV thrombus, this is likely late presentation of LAD infarction which occurred > 48 hours ago with superimposed chronic ischemic heart disease. For these reasons the decision was made to defer intervention and manage conservatively. ) - Telemetry EKG Rhythm: Sinus Rhythm - EKG Sinus rhythms and dysrhythmias: sinus rhythm Myocardial infarction: inferior MA (old age inde
--- NOTE | 2018-04-09 13:04 | Progress Note ---
Assessment and Plan Assessment and plan: Chest pain and swelling at site of AICD likely due to hematoma. ID Physician has determined no infection, stopped empiric Antibiotics Interrogation revealed proper functioning hematoma at site. Completed evacuation No fever or WBC, cultures neg, so likely hematoma. Coronary artery disease Diabetes mellitus type 2. Fingerstick q ac and hs Left ventricular thrombus Was On Coumadin, on hold because of hematoma She'll have restarted Coumadin will follow-up with cardiology. Ischemic cardiomyopathy Hypertension. Monitor BP Hyperlipidemia Full code status History Interval history: No new issues overnight Hospitalist Physical - Constitutional Vitals: Temp Pulse Resp BP Pulse Ox 98.3 F 88 18 115/68 97 04/09/18 11:32 04/09/18 11:32 04/09/18 11:32 04/09/18 11:32 04/09/18 11:32 General appearance: Present: no acute distress - EENT Eyes: Present: PERRL, EOM intact ENT: hearing intact, clear oral mucosa, dentition normal - Neck Neck: Present: supple, normal ROM - Respiratory Respiratory effort: normal Respiratory: bilateral: CTA - Cardiovascular Rhythm: regular Heart Sounds: Present: S1 & S2. Absent: gallop, rub - Extremities Extremities: no ischemia, No edema, Full ROM - Abdominal General gastrointestinal: soft, non-tender, non-distended, normal bowel sounds - Integumentary Integumentary: Present: clear, warm, dry - Neurologic Neurologic: CNII-XII intact, moves all extremities Results - Labs CBC & Chem 7: 04/09/18 05:24 04/09/18 05:24 Labs: Laboratory Last Values WBC 10.0 K/mm3 (4.5-11.0) 04/09/18 05:24 RBC 3.45 M/mm3 (3.65-5.03) L 04/09/18 05:24 Hgb 9.9 gm/dl (11.8-15.2) L 04/09/18 05:24 Hct 29.5 % (35.5-45.6) L 04/09/18 05:24 MCV 86 fl (84-94) 04/09/18 05:24 MCH 29 pg (28-32) 04/09/18 05:24 MCHC 34 % (32-34) 04/09/18 05:24 RDW 19.9 % (13.2-15.2) H 04/09/18 05:24 Plt Count 506 K/mm3 (140-440) H 04/09/18 05:24 Lymph % (Auto) 25.8 % (13.4-35.0) 04/09/18 05:24 [place] % (Auto) 9.8 % (0.0-7.3) H 04/09/18 05:24 Eos % (Auto) 3.4 % (0.0-4.3) 04/09/18 05:24 Baso % (Auto) 1.3 % (0.0-1.8) 04/09/18 05:24 Lymph # 2.6 K/mm3 (1.2-5.4) 04/09/18 05:24 [place] # 1.0 K/mm3 (0.0-0.8) H 04/09/18 05:24 Eos # 0.3 K/mm3 (0.0-0.4) 04/09/18 05:24 Baso # 0.1 K/mm3 (0.0-0.1) 04/09/18 05:24 Seg Neutrophils % 59.7 % (40.0-70.0) 04/09/18 05:24 Seg Neutrophils # 6.0 K/mm3 (1.8-7.7) 04/09/18 05:24 PT 15.8 Sec. (12.2-14.9) H 04/09/18 05:24 INR 1.19 (0.87-1.13) H 04/09/18 05:24 APTT 74.9 Sec. (24.2-36.6) H* 04/03/18 17:17 Sodium 135 mmol/L (137-145) L 04/09/18 05:24 Potassium 4.1 mmol/L (3.6-5.0) 04/09/18 05:24 Chloride 100.4 mmol/L (98-107) 04/09/18 05:24 Carbon Dioxide 22 mmol/L (22-30) 04/09/18 05:24 Anion Gap 17 mmol/L 04/09/18 05:24 BUN 9 mg/dL (9-20) 04/09/18 05:24 Creatinine 0.8 mg/dL (0.8-1.5) 04/09/18 05:24 Estimated GFR > 60 ml/min 04/09/18 05:24 BUN/Creatinine Ratio 11 % 04/09/18 05:24 Glucose 196 mg/dL (75-100) H 04/09/18 05:24 POC Glucose 195 (70-105) H 04/09/18 05:29 Hemoglobin A1c 7.4 % (4-6) H 04/03/18 21:50 Calcium 9.0 mg/dL (8.4-10.2) 04/09/18 05:24 Total Bilirubin 0.60 mg/dL (0.1-1.2) 04/04/18 05:28 AST 18 units/L (5-40) 04/04/18 05:28 ALT 25 units/L (7-56) 04/04/18 05:28 Alkaline Phosphatase 134 units/L (35-129) H 04/04/18 05:28 Troponin T < 0.010 ng/mL (0.00-0.029) 04/03/18 19:20 NT-Pro-B Natriuret Pep 740.8 pg/mL (0-900) 04/03/18 14:46 Total Protein 7.2 g/dL (6.3-8.2) 04/04/18 05:28 Albumin 3.4 g/dL (3.9-5) L 04/04/18 05:28 Albumin/Globulin Ratio 0.9 % 04/04/18 05:28
[2018-04-10 06:12] LABS: INR 1.17 (0.87-1.13)
[2018-04-10] MEDS: HumaLOG SUB-Q SCH ×2 (08:00→12:54)
--- NOTE | 2018-04-10 08:06 | Discharge Summary ---
Providers - Providers Date of Admission: 04/03/18 18:06 Date of discharge: 04/10/18 Attending physician: KEILA CANO 04/03/18 21:27 Consult to Physician [CONS] Routine Comment: Consulting Provider: ELIZ VASQUEZ Physician Instructions: Reason For Exam: AICD discharge 04/04/18 11:23 Consult to Physician [CONS] Routine Comment: Consulting Provider: WILMAN STORM Physician Instructions: Reason For Exam: ? AICD implantation site infection Consult to Wound/ET Nurse [CONS] Routine Reason For Exam: AICD wound eval Primary care physician: DATA COLLECTION SPECIALIST Hospitalization Reason for admission: AICD swelling site Condition: Stable Hospital course: The pt is a 62 YO male with a past medical history significant for CAD s/p late presentation STEMI (01/21/2018 at [facility]) complicated by cardiogenic shock requiring IABP, ICMP, AICD in situ (implanted 03/21/2018), LV thrombus, anticoagulated with coumadin, ETOH abuse, tobacco use. He was recently seen by cardiology prior hospitalization. He presented with complaints AICD pain and swelling. He stated that since the day of discharge (03/31/2018), that he had noted increased swelling and pain at his AICD implantation site. He denied any device discharges, fever, chills, chest pain, palpitations, n/v, diaphoresis, dizziness or syncope. He did not present to cardiology office for his post- procedure incision check (scheduled for 04/02 @ 10:30AM). The pain and sweelling at site was noted to be a hematoma. Interrogation revealed proper functioning. ? hematoma versus infection. ID consulted and felt no infection was present. Pt underwent evacuation on 04/08/18. Currently stable cardiac status. Pt may discharge home from cardiology standpoint. PO Keflex, 500mg BID x 10 days. Cardiology recommends holding coumadin until f/u with Cardiology. D /C time 32 min. pt may resume coumadin after follow up with [facility]. Pt states he will follow up with [facility] for post-hospital f/u and INR checks. Disposition: TO HOME OR SELFCARE Time spent for discharge: 32 - Discharge Diagnoses (1) Hematoma Status: Acute (2) Coronary artery disease Status: Chronic Qualifiers: Coronary Disease-Associated Artery/Lesion type: [place] artery [place] vs. transplanted heart: unspecified whether [place] or transplanted heart (3) Hyperlipidemia Status: Chronic Qualifiers: Hyperlipidemia type: mixed hyperlipidemia Qualified Code(s): E78.2 - Mixed hyperlipidemia (4) Hypertension Status: Chronic Qualifiers: Hypertension type: essential hypertension Qualified Code(s): I10 - Essential (primary) hypertension (5) Ischemic cardiomyopathy Status: Chronic (6) LV (left ventricular) mural thrombus Status: Chronic Core Measure Documentation - Palliative Care Palliative Care/ Comfort Measures: Not Applicable - Core Measures Any of the following diagnoses?: none Exam - Constitutional Vitals: Temp Pulse Resp BP Pulse Ox 99 F 18 L 18 105/52 99 04/10/18 05:00 04/10/18 05:00 04/10/18 05:00 04/10/18 05:00 04/10/18 05:00 General appearance: Present: no acute distress, well-nourished - EENT Eyes: Present: PERRL ENT: hearing intact, clear oral mucosa - Neck Neck: Present: supple, normal ROM - Respiratory Respiratory effort: normal Respiratory: bilateral: CTA - Cardiovascular Heart Sounds: Present: S1 & S2. Absent: rub, click - Extremities Extremities: pulses symmetrical, No edema Peripheral Pulses: within normal limits - Abdominal General gastrointestinal: Present: soft, non-tender, non-distended, normal bowel sounds Male genitourinary: Present: normal - Integumentary Integumentary: Present: clear, warm, dry - Musculoskeletal Musculoskeletal: gait normal, strength equal bilaterally - Psychiatric Psychiatric: appropriate mood/affect, intact judgment & insight - Neurologic Neurologic: CNII-XII intact, moves all extremities Plan Activity: no restrictions Weight Bearing Status: Full Weight Bearing Diet: low fat, low cholesterol, low salt Follow up with: PRIMARY CAREMD [Primary Care Provider] - 3-5 Days ELIZ VASQUEZ MD [Staff Physician] - 7 Days Forms: Warfarin Discharge Instruction Prescriptions: Aspirin [Aspirin BABY CHEW TAB] 81 mg PO DAILY #30 tab.chew AtorvaSTATin [Lipitor] 80 mg PO QHS #30 tablet Carvedilol [Coreg] 3.125 mg PO BID #60 tablet Lisinopril [Zestril TAB] 2.5 mg PO QDAY #30 tablet oxyCODONE /ACETAMINOPHEN [Percocet 5/325 mg] 1 tab PO Q6H PRN #10 tablet PRN Reason: Pain, Moderate (4-6)
[2018-04-10 11:11] VITALS: BP 97/57
[2018-04-10] MEDS: PEPCID PO SCH (11:11)
[2018-04-10] MEDS: ZESTRIL PO SCH (11:12)
[2018-04-10] MEDS: BABY ASPIRIN PO SCH (11:12)
[2018-04-10] MEDS: COREG PO SCH (11:12)
[2018-04-10] MEDS: SODIUM CHLORIDE FLUSH SYRINGE 10 ML IV SCH (11:12)
== END 2018-04-10 15:00 | disposition home or self-care (01) | DRG 262 ==
LOC: ED 14:26 → 4A 18:06
PROVIDERS: ADMIT Internal Medicine; ATTEND Hospitalist
PROC: 0JWT0PZ Revision of Cardiac Rhythm Related Device in Trunk Subcutaneous Tissue and Fascia, Open Approach (ICD-10-PCS; principal; 2018-04-07)
PROC: 4B02XTZ Measurement of Cardiac Defibrillator, External Approach (ICD-10-PCS; 2018-04-07)
DX: T82.837A Hemorrhage due to cardiac prosthetic devices, implants and grafts, initial encounter (principal); Y83.8 Other surgical procedures as the cause of abnormal reaction of the patient, or of later complication, without mention of misadventure at the time of the procedure; I25.10 Atherosclerotic heart disease of native coronary artery without angina pectoris; F10.10 Alcohol abuse, uncomplicated; I25.5 Ischemic cardiomyopathy; E78.2 Mixed hyperlipidemia; I51.3 Intracardiac thrombosis, not elsewhere classified; E11.9 Type 2 diabetes mellitus without complications; F17.200 Nicotine dependence, unspecified, uncomplicated; I11.0 Hypertensive heart disease with heart failure; I50.9 Heart failure, unspecified; D64.9 Anemia, unspecified; Z79.82 Long term (current) use of aspirin; Y92.89 Other specified places as the place of occurrence of the external cause; I25.2 Old myocardial infarction; Z95.810 Presence of automatic (implantable) cardiac defibrillator; Z79.899 Other long term (current) drug therapy; Z79.01 Long term (current) use of anticoagulants
CPT/HCPCS: 23030; 36415; 71045; 71275; 80048; 80053; 82962; 83036; 83880; 84484; 85025; 85027; 85610; 85730; 87040; 93005; 93010; 96365; 96374; 99406; A9270-GY; J0690; J1170; J1815; J2250; J2270; J2704; J3010; J3370; J7030; J7040; Q9967